=== PATIENT | female | born 1950 | race Two or more races ===

== ENCOUNTER 2020-04-04 06:56 | Outpatient (REF) | payer MEDICAID, SELFPAY ==
[2020-04-04 07:40] LABS: MANUAL DIFF FLAG NO
[2020-04-04 07:47] LABS: Basophils Absolute Auto 0.1 X10*3/uL (0.0-0.2); Basophils Percent Auto 0.7 % (0-2); Eosinophils Absolute Auto 0.3 X10*3/uL (0.0-0.4); Eosinophils Percent Auto 4.7 % (0-4); Hematocrit 40.5 % (37-47); Hemoglobin 13.4 g/dl (12.0-16.0); Imm Gran Abs Auto 0.01 X10*3/uL (0.00-0.03); Imm Gran Pct Auto 0.1 % (0.0-0.4); Lymphocytes Absolute Auto 2.9 X10*3/uL (1.2-4.9); Lymphocytes Percent Auto 42.5 % (20-40); Mean Corpuscular HGB Conc 33.1 g/dl (31.0-35.0); Mean Corpuscular Hemoglobin 30.4 pg (27.0-33.0); Mean Corpuscular Volume 91.8 fL (80-98); Mean Platelet Volume 9.3 fL (9.4-12.3); Monocytes Absolute Auto 0.6 X10*3/uL (0.1-1.2); Monocytes Percent Auto 8.5 % (2-11); Neutrophils Percent Auto 43.5 % (45-73); Platelet Count 325 X10*3/uL (160-400); Red Blood Count 4.41 X10*6/uL (4.20-5.50); Red Cell Distribution Width 11.8 % (11.0-16.0); White Blood Count 6.8 X10*3/uL (4.8-10.8)
[2020-04-04 08:41] LABS: Alanine Aminotransferase 21 U/L (0-31); Albumin Level 4.4 g/dL (3.5-5.0); Alkaline Phosphatase 76 U/L (39-117); Anion Gap 13 (12-20); Aspartate Amino Transferase 19 U/L (5-31); Bilirubin Total 0.4 mg/dL (0.0-1.0); Blood Urea Nitrogen 9 mg/dL (9-16); Calcium 9.9 mg/dL (8.4-10.2); Carbon Dioxide 30 mmol/L (22-29); Chloride 102 mmol/L (96-108); Cholesterol 234 mg/dL; Estimated Glomerular Filt Rate > 60; Glucose Fasting 99 mg/dL (60-99); HDL Cholesterol 74 mg/dL; LDL Cholesterol Calculated 141 mg/dl; Potassium 4.3 mmol/l (3.3-5.1); Sodium 141 mmol/L (135-145); Total Protein 7.6 g/dL (6.5-8.0); Triglycerides 95 mg/dL
== END 2020-04-04 06:57 | disposition home or self-care (01) ==
LOC: HO.LAB 06:56
PROVIDERS: PCP Internal Medicine; Visit Provider Internal Medicine
DX: K21.9 Gastro-esophageal reflux disease without esophagitis (principal); I10 Essential (primary) hypertension
CPT/HCPCS: 36415; 80053; 80061; 85025

== ENCOUNTER 2020-07-05 12:25 | Outpatient (REF) | payer MEDICAID, SELFPAY | END 2020-07-05 12:26 | disposition home or self-care (01) | LOC: HO.LAB 12:25 | PROVIDERS: PCP Internal Medicine; Visit Provider Internal Medicine | DX: Z20.822 Contact with and (suspected) exposure to COVID-19 (principal) | CPT/HCPCS: 36415; C9803; U0003 ==

== ENCOUNTER 2020-07-24 15:45 | Outpatient (REF) | payer MEDICAID, SELFPAY | END 2020-07-24 15:46 | disposition home or self-care (01) | LOC: HO.LAB 15:45 | PROVIDERS: Visit Provider Internal Medicine | DX: Z20.822 Contact with and (suspected) exposure to COVID-19 (principal) | CPT/HCPCS: 36415; C9803; U0003 ==

== ENCOUNTER 2020-08-08 15:06 | Outpatient (REF) | payer MEDICAID, SELFPAY | END 2020-08-08 15:07 | disposition home or self-care (01) | LOC: HO.LAB 15:06 | PROVIDERS: Visit Provider Internal Medicine | DX: Z20.822 Contact with and (suspected) exposure to COVID-19 (principal) | CPT/HCPCS: 36415; C9803; U0003; U0005 ==

== ENCOUNTER 2020-09-05 13:39 | Emergency (ER) | payer MEDICAID, SELFPAY ==
--- NOTE | ~2020-09-05 | XR_ITS ---
EXAMINATION: XR ANKLE, RIGHT CLINICAL INFORMATION: Fall, trauma, pain COMPARISON: None TECHNIQUE: AP, lateral, and mortise views of the right ankle. FINDINGS: There is mild soft tissue swelling overlying lateral malleolus. The malleoli appear intact the ankle mortise is symmetric. There is no visible fracture or dislocation. There is posterior calcaneal spur. Base fifth metatarsal is intact. XR/XR ankle RT min 3V IMPRESSION: Lateral soft tissue swelling. No fracture or dislocation.
--- NOTE | ~2020-09-05 | XR_ITS ---
EXAMINATION: XR KNEE, RIGHT CLINICAL INFORMATION: Fall with knee pain COMPARISON: None TECHNIQUE: Four views of the right knee. FINDINGS: Some minimal degenerative changes are present. Mild narrowing of the medial compartment and some tiny tibial plateau osteophytes. A small osteophyte is noted at the superior surface of the patella posteriorly. A small joint effusion is present. No fracture is seen. An enthesophyte is noted at the insertion of the superior patellar tendon. XR/XR knee RT 4V IMPRESSION: Mild degenerative changes. Small joint effusion. No evidence of traumatic injury
[2020-09-05 13:44] VITALS: BP 165/84; PULSE 91; RESP 18; TEMP 36.6; O2SAT 97; BMI 24.7
--- NOTE | 2020-09-05 17:04 | ED.LOWEXIN ---
HPI - Extremity Injury (Lower) General Chief Complaint: Extremity Injury, Lower Stated Complaint: foot pain Time Seen by Provider: 09/05/20 17:03 Source: patient and science interpreter Mode of arrival: ambulatory Limitations: no limitations History of Present Illness HPI Narrative: 69-year-old female walked into the emergency department after patient tripped on the [employer] rock and fell, patient is complaining of right ankle/right knee pain, able to bear weight and walk with pain. No head injury, no neck pain. Related Data Home Medications Medication Instructions Recorded Confirmed lisinopril 20 mg tablet 20 mg PO DAILY 04/08/20 08/12/20 Allergies Allergy/AdvReac Type Severity Reaction Status Date / Time lansoprazole [Prevacid] Allergy Unknown stomach Verified 08/12/20 14:02 upset pantoprazole Allergy Unknown stomach Verified 08/12/20 14:02 upset lubiprostone [Amitiza] AdvReac Unknown GI upset Verified 08/12/20 14:02 Review of Systems Review of Systems: Yes all other systems are reviewed and are negative [facility] Past Medical History Medical History Essential hypertension Surgical History History of tubal ligation Family History Family History Father Prostate cancer Diabetes Mother No problems noted. Paternal Grandmother Vaginal cancer Paternal Aunt Cervical cancer Son In good health Sister In good health Sister In good health Daughter In good health Daughter In good health Social History Social History Smoking Status: Former smoker Tobacco Type: Cigarette Advance Directives: No Advance Directives Information Provided: Yes Physical Exam Vital Signs: Vital Signs: Last Vital Signs Temp 97.8 F 09/05/20 13:44 Pulse 91 09/05/20 13:44 Resp 18 09/05/20 13:44 BP 165/84 H 09/05/20 13:44 Pulse Ox 97 09/05/20 13:44 Body Mass Index 24.7 High blood pressure (patient with history of hypertension) Const: General: cooperative and healthy appearing HENMT: Head: Yes normal to inspection Chest: Chest palpation & inspection: normal inspection of the chest and normal palpation of entire chest wall Resp: Effort & Inspection: normal respiratory effort Cardio: Jugular venous distension: no JVD GI: Inspection: Yes normal to inspection Extrem: Other: Right ankle: Swelling over lateral malleolus, mild tenderness over the lateral malleolus, no deformity, no step-off, normal neurovascular exam. Right knee: Tenderness over the entire joint, no deformity, no step-off, mild joint effusion, full passive range of motion with pain and tenderness. Course Course Course Narrative: Assessment and plan. 69-year-old female status post mechanical fall with right ankle/right knee contusion and swelling. Recommended ice/elevation/NSAIDs. MDM - Extremity Injury (Lower) Imaging Data Right ankle x-ray: Radiologist's impression: No acute fracture, swelling over lateral malleolus. Right knee x-ray: Radiologist's impression: No acute fracture or dislocation. Discharge Plan Discharge Clinical Impression: Essential hypertension, Ankle sprain and strain, Contusion of knee Patient Disposition: Home, Self-Care Instructions: Ankle Sprain (ED) Additional Instructions: Take ibuprofen 200 mg tablet every 6 hours if needed for pain do not take it on empty stomach. Apply ice to the right knee/right ankle. Elevate your right lower extremities at night time only sleeping. Prescriptions: No Action lisinopril 20 mg tablet 20 mg PO DAILY RF: 0 Referrals: Physician,Unknown [Primary Care Provider] - 2 days
[2020-09-05] MEDS: Ibuprofen 800 MG TABLET PO (17:38)
== END 2020-09-05 19:09 | disposition home or self-care (01) ==
PROVIDERS: Emergency Provider Emergency Medicine
DX: S93.401A Sprain of unspecified ligament of right ankle, initial encounter (principal); S96.911A Strain of unspecified muscle and tendon at ankle and foot level, right foot, initial encounter; S80.01XA Contusion of right knee, initial encounter; W01.0XXA Fall on same level from slipping, tripping and stumbling without subsequent striking against object, initial encounter; I10 Essential (primary) hypertension; Y93.01 Activity, walking, marching and hiking; Y92.480 Sidewalk as the place of occurrence of the external cause; Y99.9 Unspecified external cause status; Z87.891 Personal history of nicotine dependence
CPT/HCPCS: 73564; 73610; 99283; 99284

== ENCOUNTER 2020-10-26 22:59 | Emergency (ER) | payer MEDICAID, SELFPAY ==
[2020-10-27 00:08] VITALS: BP 169/93; PULSE 77; RESP 16; O2SAT 99; BMI 26.9
[2020-10-27 00:17] VITALS: BP 176/90
[2020-10-27 00:30] LABS: MANUAL DIFF FLAG NO
[2020-10-27 00:31] VITALS: BP 176/90; PULSE 78
[2020-10-27] MEDS: amLODIPine Besylate 5 MG TABLET PO (00:31)
[2020-10-27] MEDS: Acetaminophen 325 MG TABLET 650 MG PO (00:31)
--- NOTE | 2020-10-27 00:31 | ED.GENADULT ---
HPI - General Adult General Chief complaint: General Medical Stated complaint: high bp Time Seen by Provider: 10/27/20 00:06 Source: patient Mode of arrival: ambulatory Limitations: language barrier History of Present Illness HPI narrative: 70-year-old female with past medical history of hypertension presents with elevated blood pressure. States that she took blood pressure earlier today was 190/90. She was seen by her primary care physician a few days ago, and primary care increased her lisinopril from 20 mg to 30 mg. Patient has been compliant with 30 mg dosage of lisinopril. She states that she monitors her blood pressure several times a day and has concerns that the 30 mg of lisinopril did not work for her. She does describe a slight headache that is occipital and consistent with prior headaches, and does not have any other concerns. She denies chest pain or pressure, palpitations, shortness breath, shortness breath on exertion, dizziness, lightheadedness, abdominal pain, abdominal distention, dysuria, hematuria, nausea, vomiting, diarrhea, loss of balance, edema, symptoms indicating cauda equina, changes in vision, or any other concerning symptoms. Onset (ago): unknown Location: head Radiation: non-radiation Severity: moderate Severity scale (1-10): 4 Quality: aching Pain Consistency: constant Relieving factors: none Associated symptoms: denies other symptoms Treatments prior to arrival: none Related Data Previous Rx's Medication Instructions Recorded lisinopril 30 mg tablet 30 mg PO DAILY 90 Days #90 tab 10/25/20 amlodipine 5 mg PO DAILY #30 tab 10/27/20 Allergies Allergy/AdvReac Type Severity Reaction Status Date / Time lansoprazole [Prevacid] Allergy Unknown stomach Verified 10/02/20 16:11 upset pantoprazole Allergy Unknown stomach Verified 10/02/20 16:11 upset lubiprostone [Amitiza] AdvReac Unknown GI upset Verified 10/02/20 16:11 Review of Systems Review of Systems: Constitutional: Positive headache, No Weight loss, No Fever, No Chills, No Night Sweats, No Fatigue, No Malaise ENT/Mouth: No Hearing loss, No Ear Pain, No Nasal Congestion, No Sinus Pain, No Hoarseness, No sore throat, No Rhinorrhea, No Swallowing Difficulty Eyes: No Eye Pain, No Swelling, No Redness, No Foreign Body, No Discharge, No Vision Changes Cardiovascular: Positive elevated blood pressure, No Chest Pain, No SOB, No Dyspnea on Exertion, No Orthopnea, No Edema, No Palpitations Respiratory: No Cough, No Sputum, No Wheezing, No Smoke Exposure, No Dyspnea Gastrointestinal: No Nausea, No Vomiting, No Diarrhea, No Constipation, No abdominal Pain, No Hematochezia, No Melena Genitourinary: no irregular bleeding, No Dysuria, No Urinary Frequency, No Hematuria, No Urinary Incontinence, No Urgency, No Flank Pain, No Urinary Flow Changes, No Hesitancy Musculoskeletal: No joint pain, No Myalgias, No Joint Swelling Skin: No Skin Lesions, No rash Neuro: Positive headache, No Weakness, No Numbness, No Paresthesias, No Loss of Consciousness, No Dizziness Psych: No Anxiety/Panic, No Depression, No SI/HI/AH/VH, No Social Issues Heme/Lymph: No Bruising, No Bleeding,No Lymphadenopathy Endocrine: No Polyuria, No Polydipsia, No Temperature Intolerance Yes all other systems are reviewed and are negative [facility] Past Medical History Attestation statement: The following information was validated with the patient. Source: old records reviewed Medical History Essential hypertension Right ankle swelling Surgical History History of tubal ligation Family History Family History Father Prostate cancer Diabetes Mother No problems noted. Paternal Grandmother Vaginal cancer Paternal Aunt Cervical cancer Son In good health Sister In good health Sister In good health Daughter In good health Daughter In good health Social History Social History Alcohol intake: never Smoking Status: Never smoker Tobacco Type: Cigarette Smoked in Last 30 Days: No Use of substances other than those prescribed or required for medical reasons: No Advance Directives: No Advance Directives Information Provided: No Physical Exam Vital Signs: Vital Signs: Last Vital Signs Pulse 78 10/27/20 00:31 Resp 16 10/27/20 00:08 BP 176/90 H 10/27/20 00:31 Pulse Ox 99 10/27/20 00:08 Body Mass Index 26.9 Appearance: Alert. Oriented X3. No acute distress. Head: Normal external exam. Normocephalic. Atraumatic. No Micthell signs noted. No raccoon eyes noted Eyes: PERRLA. EOMI. Conjunctiva and sclera normal. Eyelids normal. ENT: TM's Normal. Pharynx normal. Uvula midline. Moist mucous membranes. No trismus noted. No drooling noted. No muffled voice noted. Neck: Normal inspection. Neck supple. No adenopathy. Thyroid Normal. No meningeal signs. No neck mass noted. CVS: Normal heart rate and rhythm. Heart sound normal. No murmurs noted. Pulses equal to all extremities. Respiratory: No respiratory distress. Painless inspiration. Breath sounds normal. No wheezes/rales/rhonchi noted. Chest nontender. No accessory muscle usage noted or decreased air movement noted. Abdomen: Soft and nontender. Bowel sounds normal in all 4 quadrants. No distention noted. No organomegaly noted. No visible injury noted. Back: No CVA tenderness. Full range of motion noted. Skin: Skin warm and dry. Normal skin color. Normal skin turgor. No rashes/lesions/lacerations noted. Extremities: No lower extremity edema. Extremities exhibit normal range of motion. Extremities nontender. Neuro: cranial nerves 2-12 intact, no focal neural deficits, strength 5/5 to all extremities, No motor deficit. No sensory deficit. Course Course Course Narrative: 70-year-old female presents with elevated blood pressure and headache. States this headache is consistent with her prior headaches that she has had. Was seen by her primary care physician on 10/02/2020, and presented to the office on 10/25/2020 for elevated blood pressure. On 10/25/2020 she did not see a physician, the office nurse called her primary, and then primary increased lisinopril from 20 mg to 10 mg. Patient does not have any neurological deficits, NIH stroke scale is 0. At this time I do not feel patient requires CT scan or imaging, will order CBC, Chem 7, and give amlodipine 5 mg. Discussion with patient utilizing fine wire drawer, patient feels that her blood pressure is too high, discussed adding amlodipine to her regimen however she must follow-up with primary care physician for follow-up. Patient agrees to this plan of care. Approximate 1 hour after amlodipine administration blood pressure 150/85, patient no longer has a headache. No focal neural deficits. Detailed description of blood pressure monitoring and that she needs to follow up with primary care physician. fine wire drawer utilized all correspondence. Google translate utilized for discharge instructions. Patient verbalized understanding of discharge instructions, amlodipine use, blood pressure monitoring, need to follow-up with primary care, and agrees to plan of care discharge home. Medical Decision Making Differential Diagnosis Differential Diagnosis: Essential hypertension Medical Records Medical records reviewed: Yes I reviewed the patient's medical records. Lab Data Lab results reviewed: Yes I reviewed the patient's lab results. Result diagrams: 10/27/20 00:27 10/27/20 00:27 Labs: Lab Results 10/27/20 10/27/20 Range/Units 00:27 00:27 WBC 8.0 (4.8-10.8) X10*3/uL RBC 4.25 (4.20-5.50) X10*6/uL Hgb 13.0 (12.0-16.0) g/dl Hct 39.0 (37-47) % MCV 91.8 (80-98) fL MCH 30.6 (27.0-33.0) pg MCHC 33.3 (31.0-35.0) g/dl RDW 11.9 (11.0-16.0) % Plt Count 311 (160-400) X10*3/uL MPV 9.3 L (9.4-12.3) fL Immature Gran % (Auto) 0.1 (0.0-0.4) % Neut % (Auto) 57.0 (45-73) % Lymph % (Auto) 29.4 (20-40) % [place] % (Auto) 9.0 (2-11) % Eos % (Auto) 4.1 H (0-4) % Baso % (Auto) 0.4 (0-2) % Lymph # (Auto) 2.3 (1.2-4.9) X10*3/uL [place] # (Auto) 0.7 (0.1-1.2) X10*3/uL Eos # (Auto) 0.3 (0.0-0.4) X10*3/uL Baso # (Auto) 0.0 (0.0-0.2) X10*3/uL Abs Immat Gran (auto) 0.01 (0.00-0.03) X10*3/uL Absolute Neuts (auto) 4.5 (2.0-8.3) X10*3/uL Absolute Nucleated RBC 0.000 (0.0-0.012) X10*3/uL Nucleated RBC % (auto) 0.0 (0.0-0.2) /100WBC Sodium 142 (135-145) mmol/L Potassium 3.8 (3.3-5.1) mmol/L Chloride 104 (96-108) mmol/L Carbon Dioxide 28 (22-29) mmol/L Anion Gap 14 (12-20) BUN 17 H D (9-16) mg/dL Creatinine 0.77 (0.5-1.4) mg/dL Estim Creat Clear Calc 64.2 Estimated GFR > 60 Random Glucose 100 (60-115) mg/dL Calcium 9.7 (8.4-10.2) mg/dL Discharge Plan Discharge Clinical Impression: Essential hypertension Patient Disposition: Home, Self-Care Instructions: Amlodipine (By mouth), Hypertension (ED) Additional Instructions: Te evaluaron para elevar la presi?n arterial. Por favor, contin?e tomando lala lisinopril seg?n las instrucciones de lala m?dico de atenci?n primaria. Agregamos amlodipino 5 mg. Usted debe hacer un seguimiento con el m?dico de atenci?n primaria dentro de la pr?xima semana para evaluarlo para la presi?n arterial elevada y nuevos medicamentos para la presi?n arterial. Por favor, tome lala presi?n arterial cristopher vez antes de nan medicamentos y luego cristopher vez 3 horas despu?s de nan medicamentos. Anota los n?meros y ll?valos a lala m?dico de atenci?n primaria para que pueda evaluar si los medicamentos para la presi?n arterial est?n funcionando eficazmente [place] por elegir link departamento de emergencias para lala evaluaci?n. Por favor, fozia un seguimiento con el m?dico de atenci?n primaria seg?n sea necesario. Regrese al servicio de emergencias para cualquier s?ntoma nuevo, preocupante o que empeore. You were evaluated for elevated blood pressure. Please continue to take your lisinopril as directed by her primary care physician. We added amlodipine 5 mg. You must follow-up with primary care physician within the next week to evaluate you for elevated blood pressure and new blood pressure medication. Please take your blood pressure once before you take medications and then once 3 hours after you take medications. Write the numbers down and bring them to her primary care physician so she can evaluate if the blood pressure medications are working effectively. Thank you for choosing this emergency department for evaluation. Please follow-up with primary care physician as needed. Return to the emergency department for any new, concerning, or worsening symptoms. Prescriptions: New amlodipine 5 mg tablet 5 mg PO DAILY Qty: 30 RF: 0 No Action lisinopril 30 mg tablet 30 mg PO DAILY 90 Days Qty: 90 RF: 1
[2020-10-27 00:32] LABS: Basophils Percent Auto 0.4 % (0-2); Eosinophils Absolute Auto 0.3 X10*3/uL (0.0-0.4); Eosinophils Percent Auto 4.1 % (0-4); Imm Gran Abs Auto 0.01 X10*3/uL (0.00-0.03); Imm Gran Pct Auto 0.1 % (0.0-0.4); Lymphocytes Absolute Auto 2.3 X10*3/uL (1.2-4.9); Lymphocytes Percent Auto 29.4 % (20-40); Mean Corpuscular HGB Conc 33.3 g/dl (31.0-35.0); Mean Corpuscular Hemoglobin 30.6 pg (27.0-33.0); Mean Corpuscular Volume 91.8 fL (80-98); Mean Platelet Volume 9.3 fL (9.4-12.3); Monocytes Absolute Auto 0.7 X10*3/uL (0.1-1.2); Neutrophils Absolute Auto 4.5 X10*3/uL (2.0-8.3); Platelet Count 311 X10*3/uL (160-400); Red Blood Count 4.25 X10*6/uL (4.20-5.50); Red Cell Distribution Width 11.9 % (11.0-16.0)
[2020-10-27 00:55] LABS: Anion Gap 14 (12-20); Blood Urea Nitrogen 17 mg/dL (9-16); Calcium 9.7 mg/dL (8.4-10.2); Carbon Dioxide 28 mmol/L (22-29); Chloride 104 mmol/L (96-108); Creatinine Clr Calc Pharmacy 64.2; Estimated Glomerular Filt Rate > 60; Glucose Random 100 mg/dL (60-115); Potassium 3.8 mmol/L (3.3-5.1); Sodium 142 mmol/L (135-145)
[2020-10-27 01:12] VITALS: BP 150/85; PULSE 70; RESP 16; O2SAT 98
== END 2020-10-27 02:05 | disposition home or self-care (01) ==
PROVIDERS: Nurse Practitioner Family; Emergency Provider Emergency Medicine; PCP Internal Medicine
DX: I10 Essential (primary) hypertension (principal); R51.9 Headache, unspecified; F17.210 Nicotine dependence, cigarettes, uncomplicated; Z79.899 Other long term (current) drug therapy
CPT/HCPCS: 36415; 80048; 85025; 99283; 99284

== ENCOUNTER 2020-11-13 09:29 | Outpatient (REF) | payer MEDICAID, SELFPAY ==
--- NOTE | ~2020-11-13 | MR_ITS ---
EXAMINATION: MR ANKLE WITHOUT AND WITH CONTRAST, RIGHT CLINICAL INFORMATION: Fall injury. Pain. COMPARISON: Right ankle radiographs dated September 05, 2020. TECHNIQUE: MRI of the ankle was performed before and after the intravenous administration of 7 mL gadolinium on a high-field scanner. FINDINGS: Bone/Cartilage: Vertically oriented dark signal in the posterior malleolus is appreciated secondary to a minimally posteriorly displaced, complete vertically oriented intra-articular fracture through the posterior malleolus. There is mild posterior displacement of the distal fracture fragment at the fracture site. Surrounding bone marrow edema at the fracture site is appreciated. The joint spaces are preserved. No erosion or periosteal edema. No osteochondral lesion. Tendons: The anterior extensor tendons are intact. The posterior tibialis, flexor digitorum longus and flexor hallucis longus tendons are intact. The peroneus longus and brevis tendons are intact. The Achilles tendon is normal. Ligaments: The anterior and posterior tibiofibular and talofibular ligaments are intact. The calcaneofibular ligament is intact. The deltoid and spring ligament complex are intact. The Lisfranc ligament complex is intact. Miscellaneous: Plantar fascia is intact. Tarsal tunnel is normal in appearance. Edematous changes in the sinus Tarsi are noted with replacement of sinus Tarsi fat with edema. Mild edema in Kager's fat pad. Moderate ankle joint effusion and small posterior subtalar joint effusion. No muscle atrophy or fatty infiltration. MR/MR ankle RT wo/w con IMPRESSION: Right ankle: Nondisplaced minimally posteriorly displaced complete, vertically oriented intra-articular fracture of the posterior malleolus with surrounding bone marrow edema. Moderate ankle joint effusion and mild ankle joint synovitis, presumed posttraumatic. Mild posterior subtalar joint effusion. Intact ankle ligaments and tendons. Edematous changes in the sinus Tarsi presumed posttraumatic. 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
== END 2020-11-13 09:30 | disposition home or self-care (01) ==
LOC: HO.MRI 09:29
PROVIDERS: Visit Provider Internal Medicine
DX: M25.471 Effusion, right ankle (principal)
CPT/HCPCS: 73723; A9585

== ENCOUNTER 2020-12-02 07:47 | Outpatient (REF) | payer MEDICAID, SELFPAY ==
[2020-12-02 09:13] LABS: Alanine Aminotransferase 19 U/L (0-31); Albumin Level 4.1 g/dL (3.5-5.0); Alkaline Phosphatase 79 U/L (39-117); Anion Gap 11 (12-20); Aspartate Amino Transferase 18 U/L (5-31); Bilirubin Total 0.5 mg/dL (0.0-1.0); Blood Urea Nitrogen 21 mg/dL (9-16); Calcium 9.8 mg/dL (8.4-10.2); Carbon Dioxide 28 mmol/L (22-29); Chloride 106 mmol/L (96-108); Cholesterol 244 mg/dL; Estimated Glomerular Filt Rate 60; Glucose Fasting 102 mg/dL (60-99); HDL Cholesterol 70 mg/dL; LDL Cholesterol Calculated 158 mg/dl; Potassium 4.2 mmol/L (3.3-5.1); Sodium 141 mmol/L (135-145); Total Protein 7.1 g/dL (6.5-8.0); Triglycerides 80 mg/dL
== END 2020-12-02 07:48 | disposition home or self-care (01) ==
LOC: HO.LAB 07:47
PROVIDERS: PCP Internal Medicine; Visit Provider Internal Medicine
DX: E78.5 Hyperlipidemia, unspecified (principal); I10 Essential (primary) hypertension; M25.471 Effusion, right ankle
CPT/HCPCS: 36415; 80053; 80061

== ENCOUNTER 2020-12-25 11:03 | Outpatient (REF) | payer MEDICAID, SELFPAY ==
--- NOTE | ~2020-12-25 | MM_ITS ---
EXAMINATION: MM SCREENING DIGITAL BREAST TOMOSYNTHESIS, BILATERAL CLINICAL INFORMATION: Screening. Asymptomatic. The lifetime risk of breast cancer based on the Tyrer-Cuzick Model is 3.4%. COMPARISON: Mammography: May 17, 2019 and studies dating back to April 07, 2016 TECHNIQUE: Digital breast tomosynthesis is performed in both the craniocaudal and mediolateral oblique views along with computer-aided detection (CAD). Synthesized 2D images are generated from the tomosynthesis. FINDINGS: There are scattered areas of fibroglandular density (ACR BI-RADS breast composition Category b). There are no significant masses, abnormal calcifications, or other abnormalities. MM/MM tomosynthesis screening BI IMPRESSION: There are no significant changes from prior study. ASSESSMENT: BI-RADS 1: Negative RECOMMENDATION: Routine annual mammography screening. This patient's information was entered into a reminder system with a target due date for their next mammogram.
== END 2020-12-25 11:04 | disposition home or self-care (01) ==
LOC: HO.MAMMO 11:03
PROVIDERS: Visit Provider Internal Medicine
DX: Z12.31 Encounter for screening mammogram for malignant neoplasm of breast (principal)
CPT/HCPCS: 77063; 77067

== ENCOUNTER 2020-12-27 10:04 | Outpatient (REF) | payer MEDICAID, SELFPAY ==
--- NOTE | ~2020-12-27 | XR_ITS ---
EXAMINATION: XR ANKLE, RIGHT CLINICAL INFORMATION: Pain COMPARISON: Previous x-ray August 2010 and MRI of the ankle October 2010 TECHNIQUE: AP, lateral, and mortise views of the right ankle. FINDINGS: There is new cortical thickening of the posterior malleolus likely related to healing fracture. A discrete fracture line is not appreciated. The ankle mortise is normal. There is a calcaneal spur at the Achilles tendon insertion. Soft tissues are otherwise normal. XR/XR ankle RT min 3V IMPRESSION: New cortical thickening of the posterior malleolus likely representing a healing fracture.
== END 2020-12-27 10:05 | disposition home or self-care (01) ==
LOC: HO.XRAY 10:04
PROVIDERS: PCP Internal Medicine; Visit Provider Physician Assistant
DX: S82.891D Other fracture of right lower leg, subsequent encounter for closed fracture with routine healing (principal); X58.XXXD Exposure to other specified factors, subsequent encounter
CPT/HCPCS: 73610; 99202

== ENCOUNTER 2021-01-15 06:56 | Outpatient (REF) | payer MEDICAID, SELFPAY ==
[2021-01-15 07:59] LABS: Alanine Aminotransferase 19 U/L (0-31); Albumin Level 4.2 g/dL (3.5-5.0); Alkaline Phosphatase 75 U/L (39-117); Anion Gap 12 (12-20); Aspartate Amino Transferase 20 U/L (5-31); Bilirubin Total 0.4 mg/dL (0.0-1.0); Blood Urea Nitrogen 17 mg/dL (9-16); Calcium 9.9 mg/dL (8.4-10.2); Carbon Dioxide 27 mmol/L (22-29); Chloride 106 mmol/L (96-108); Cholesterol 186 mg/dL; Estimated Glomerular Filt Rate > 60; Glucose Fasting 97 mg/dL (60-99); HDL Cholesterol 70 mg/dL; LDL Cholesterol Calculated 99 mg/dl; Potassium 4.4 mmol/L (3.3-5.1); Sodium 141 mmol/L (135-145); Total Protein 7.6 g/dL (6.5-8.0); Triglycerides 89 mg/dL
== END 2021-01-15 06:57 | disposition home or self-care (01) ==
LOC: HO.LAB 06:56
PROVIDERS: PCP Internal Medicine; Visit Provider Internal Medicine
DX: E78.5 Hyperlipidemia, unspecified (principal)
CPT/HCPCS: 36415; 80053; 80061

== ENCOUNTER 2021-02-20 10:00 | Outpatient (RCR) | payer MEDICAID, SELFPAY ==
--- NOTE | 2021-01-16 12:01 | MHC.PT.EP ---
[facility] [place] Office [place] Office [place] Office [address] [phone] F: [phone] F: [phone] F: [phone] F: [phone] Physical Therapy Plan of Care Date of Evaluation: Date of Surgery: N/A Diagnosis: S82.891D: other fracture of right lower leg, subsequent encounter for fracture with routine healing Assessment: pt presents post-fall w/ nondisplaced fx of R posterior malleolus causing range of motion restrictions in the sagittal plane, B LE edema, and weakness of muscles surrounding the talocrural join limiting her ability to perform functional mobility such as household and community ambulation, stairs to access her home, and 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 pt was reporting numbness of the entire R LE; however, sensory testing was negative. pt is a good candidate for skilled PT due to age, potential remediation of impairments, typical disease/condition progression and prognosis, comorbidities, and motivation. pt would benefit from tailored strengthening and stretching exercise program, functional training, gait training, postural re-training, neuromuscular re-education, modalities as needed for pain, and equipment safety demonstration. Frequency and Duration: The patient will be seen 2x/wk for 4 wks Short Term Goals: pt will be I w/ HEP to promote self-management of condition. pt will improve R ankle DF by 10 degrees to promote ability to descend stairs without having to turn her body sideways using LRAD. 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 pt will improve R ankle strength PF by 1 MMT grade to improve push-off at terminal stance during gait to improve gait speed and reduce fall risk. Treatment Plan: Modalities to reduce pain, spasms and effusion. Manual therapy to restore motion and function. Therapeutic exercise to improve strength and flexibility. Neuromuscular re-education for posture and balance. Therapeutic activities to return to functional activities of daily living. Electronically signed by: Melia Gutierrez PT, DPT Please sign and return to therapist. Thank you for your referral.
--- NOTE | 2021-02-20 13:48 | MHC.PT.DC ---
[facility] [place] Office [place] Office [place] Office [address] [phone] F: [phone] F: [phone] F: [phone] F: [phone] Physical Therapy Discharge Report Diagnosis: S82.891D: other fracture of right lower leg, subsequent encounter for fracture with routine healing Date of Surgery: DOI 09/05/20 Date of Evaluation: 01/16/21 Date of Discharge: 02/20/21 Treatments to Date: 9 Cancellations to Date: 0 No Shows to Date: 0 Discharge Status: Improved Function Independent with HEP Discharge Summary: The patient has been consistently reporting little to no pain. She reports no limitations at home or while ambulating in the community. She is able to navigate the stairs into and out of her home. She has been compliant with wearing the ASO brace and more supportive footwear through consistent education. She is independent with her home exercise program. The patient is discharged from this physical therapy plan of care. Electronically signed by: Melia Gutierrez PT, DPT Please sign and return to therapist. Thank you for your referral.
== END 2021-02-20 13:48 | disposition home or self-care (01) ==
LOC: HO.PT 10:00
PROVIDERS: PCP Internal Medicine; Visit Provider Physician Assistant
DX: S82.891D Other fracture of right lower leg, subsequent encounter for closed fracture with routine healing (principal)
CPT/HCPCS: 97110; 97112; 97150; 97161; 97530

== ENCOUNTER 2021-04-29 14:17 | Outpatient (REF) | payer MEDICAID, SELFPAY | END 2021-04-29 14:18 | disposition home or self-care (01) | LOC: HO.LAB 14:17 | PROVIDERS: Visit Provider Internal Medicine | DX: Z20.822 Contact with and (suspected) exposure to COVID-19 (principal) | CPT/HCPCS: C9803; U0003; U0005 ==

== ENCOUNTER 2021-07-09 10:47 | Outpatient (REF) | payer MEDICAID, SELFPAY | END 2021-07-09 10:48 | disposition home or self-care (01) | LOC: HO.LAB 10:47 | PROVIDERS: Visit Provider Internal Medicine | DX: Z13.89 Encounter for screening for other disorder (principal) | CPT/HCPCS: C9803 ==

== ENCOUNTER 2021-07-22 08:50 | Outpatient (REF) | payer MEDICAID, SELFPAY ==
--- NOTE | ~2021-07-22 | US_ITS ---
EXAMINATION: US RETROPERITONEAL LIMITED (RENAL ONLY) CLINICAL INFORMATION: Essential primary hypertension. COMPARISON: Previous CT of the abdomen and pelvis July 2019, MR of the abdomen June 2018 and renal ultrasound July 2016. TECHNIQUE: Chaney scale and color imaging of the kidneys. Doppler color and chaney scale evaluation of the renal arteries including waveform spectral analysis was performed. FINDINGS: RIGHT KIDNEY: 10.6 x 5.5 x 5.0 cm (SAG x AP x TRV). The kidney is normal in size, contour, and echogenicity. Renal cortical thickness is normal. There is a 3.7 x 3.6 x 3.1 cm echogenic lesion exophytic to the posterior upper pole of the right kidney. This probably represents an angiomyolipoma. This measured 2.9 x 1.2 x 2.5 cm on most recent CT of July 2019 and is slightly increased in size. No calculi. No hydronephrosis. LEFT KIDNEY: 11.7 x 5.4 x 6.7 cm (SAG x AP x TRV). The kidney is normal in size, contour, and echogenicity. Renal cortical thickness is normal. No calculi or focal parenchymal lesions. No hydronephrosis. The visualized mid abdominal aorta is normal in caliber and demonstrates normal peak systolic velocity of 95 cm/s. The right renal artery appears patent. The right renal artery peak systolic velocities are normal and measure 141, 130 and 82 cm/s proximally, in the midportion and distally. Right renal artery to aorta ratio is normal measuring 1.5 cm. Interlobar arteries in the right kidney are normal measuring 0.7 to 0.8. The right renal vein is patent. The left renal artery appears patent. The left renal artery peak systolic velocities are normal measuring 115, 130, and 99 cm/s proximally, in the midportion and distally. Left renal artery to aorta ratio is normal. Resistive indices of the interlobar arteries in the left kidney are normal measuring 0.7 to 0.8. The left renal vein is patent. US/US renal doppler IMPRESSION: Interval increase in size in the now 3.7 x 3.6 x 3.1 cm hyperechoic lesion exophytic to the upper pole of the right kidney. This most likely represents an angiomyolipoma. Normal renal Doppler exam. No evidence of renal artery stenosis.
== END 2021-07-22 08:51 | disposition home or self-care (01) ==
LOC: HO.US 08:50
PROVIDERS: PCP Internal Medicine; Visit Provider Internal Medicine
DX: I10 Essential (primary) hypertension (principal)
CPT/HCPCS: 76775; 93975

== ENCOUNTER 2021-12-31 11:32 | Outpatient (REF) | payer OTHER, SELFPAY ==
--- NOTE | ~2021-12-31 | MM_ITS ---
EXAMINATION: MM SCREENING DIGITAL BREAST TOMOSYNTHESIS, BILATERAL CLINICAL INFORMATION: Screening. Asymptomatic. The lifetime risk of breast cancer based on the Tyrer-Cuzick Model is 3%. COMPARISON: Mammography: 12/25/2020, 05/17/2019, 05/04/2018 TECHNIQUE: Digital breast tomosynthesis is performed in both the craniocaudal and mediolateral oblique views along with computer-aided detection (CAD). Synthesized 2D images are generated from the tomosynthesis. FINDINGS: There are scattered areas of fibroglandular density (ACR BI-RADS breast composition Category b). There are no significant masses, abnormal calcifications, or other abnormalities. Parenchymal pattern is similar to prior exams. There are incidental intramammary nodes again noted bilateral outer quadrant. The axilla and skin contours are unremarkable. MM/MM tomosynthesis screening BI IMPRESSION: No mammographic evidence of malignancy. ASSESSMENT: BI-RADS 2: Benign RECOMMENDATION: Routine annual mammography screening. This patient's information was entered into a reminder system with a target due date for their next mammogram.
== END 2021-12-31 11:33 | disposition home or self-care (01) ==
LOC: HO.MAMMO 11:32
PROVIDERS: Visit Provider Internal Medicine
DX: Z12.31 Encounter for screening mammogram for malignant neoplasm of breast (principal)
CPT/HCPCS: 77063; 77067

== ENCOUNTER 2022-01-22 08:16 | Outpatient (REF) | payer OTHER, MEDICAID, SELFPAY ==
[2022-01-22 09:24] LABS: Alanine Aminotransferase 30 U/L (0-31); Albumin Level 4.1 g/dL (3.5-5.0); Alkaline Phosphatase 82 U/L (39-117); Anion Gap 12 (12-20); Aspartate Amino Transferase 22 U/L (5-31); Bilirubin Total 0.2 mg/dL (0.0-1.0); Blood Urea Nitrogen 11 mg/dL (9-16); Calcium 9.7 mg/dL (8.4-10.2); Carbon Dioxide 28 mmol/L (22-29); Chloride 103 mmol/L (96-108); Cholesterol 231 mg/dL; Estimated Glomerular Filt Rate > 60; Glucose Fasting 97 mg/dL (60-99); HDL Cholesterol 58 mg/dL; LDL Cholesterol Calculated 150 mg/dl; Potassium 3.8 mmol/L (3.3-5.1); Sodium 139 mmol/L (135-145); Total Protein 7.4 g/dL (6.5-8.0); Triglycerides 115 mg/dL
== END 2022-01-22 08:17 | disposition home or self-care (01) ==
LOC: HO.LAB 08:16
PROVIDERS: PCP Internal Medicine; Visit Provider Internal Medicine
DX: I10 Essential (primary) hypertension (principal); E78.5 Hyperlipidemia, unspecified
CPT/HCPCS: 36415; 80053; 80061

== ENCOUNTER 2022-02-10 07:46 | Outpatient (REF) | payer OTHER, SELFPAY ==
--- NOTE | ~2022-02-10 | XR_ITS ---
EXAMINATION: XR SHOULDER, RIGHT CLINICAL INFORMATION: Right shoulder pain. COMPARISON: None TECHNIQUE: 3 views of the right shoulder. FINDINGS: There is loss of right AC joint space with periarticular spurring. The glenohumeral joint space is normal. No loose bodies, acute fracture or bony erosive changes. No soft tissue calcification. XR/XR shoulder RT min 2V IMPRESSION: Degenerative arthritic changes right AC joint.
== END 2022-02-10 07:47 | disposition home or self-care (01) ==
LOC: HO.HOSX 07:46
PROVIDERS: Visit Provider Physician Assistant
DX: M75.101 Unspecified rotator cuff tear or rupture of right shoulder, not specified as traumatic (principal); M75.102 Unspecified rotator cuff tear or rupture of left shoulder, not specified as traumatic
CPT/HCPCS: 73030; 99202

== ENCOUNTER 2022-09-25 06:46 | Outpatient (REF) | payer OTHER, SELFPAY ==
--- NOTE | ~2022-09-25 | XR_ITS ---
EXAMINATION: XR CHEST CLINICAL INFORMATION: Positive TB test. COMPARISON: None available. TECHNIQUE: 2 views of the chest were obtained. FINDINGS: The cardiac and mediastinal contours are normal. There is biapical pleural and parenchymal scarring, right greater than left. There is an asymmetric density measuring approximately 1 cm at the right lung apex overlying the right posterior 4th rib. There are increased linear markings in the right upper lobe, probably representing scarring. There is question of a surgical staple line in the right upper lobe between the right posterior 5th and 6th ribs. There is a triangular-shaped density in the right upper chest overlying the scapula and posterior 6th rib. The lungs are otherwise clear. There is no pleural effusion or pneumothorax. There are degenerative changes of the spine. XR/XR chest 2V IMPRESSION: Biapical pleural and parenchymal scarring, right greater than left. Abnormal right upper lobe findings. Comparison with old outside chest x-rays if available is recommended. Otherwise followup chest CT should be considered.
== END 2022-09-25 06:47 | disposition home or self-care (01) ==
LOC: HO.XRAY 06:46
PROVIDERS: PCP Internal Medicine; Visit Provider Internal Medicine
DX: R76.11 Nonspecific reaction to tuberculin skin test without active tuberculosis (principal)
CPT/HCPCS: 71046

== ENCOUNTER 2023-01-06 07:05 | Outpatient (REF) | payer OTHER, SELFPAY ==
--- NOTE | ~2023-01-06 | XR_ITS ---
EXAMINATION: XR CHEST CLINICAL INFORMATION: Positive PPD. COMPARISON: Chest radiograph 09/25/2022. TECHNIQUE: 2 views of the chest were obtained. FINDINGS: Redemonstration of right greater than left biapical pleural-parenchymal thickening and scarring. Again noted approximately 1.2 cm nodularity in the right upper lobe with irregular margins, not significantly changed compared to 09/25/2022. Otherwise, clear lungs. No pleural effusions or pneumothorax. No acute osseous findings. The visualized upper abdomen is within normal limits. XR/XR chest 2V IMPRESSION: 1. No significant change since 09/25/2022. 2. Again noted approximately 1.2 cm nodularity in the right upper lobe with irregular margins, malignancy is not excluded. Further evaluation with chest CT is recommended. 3. Right greater than left biapical pleural parenchymal thickening and scarring. The report will be called to the ordering clinician by a [facility] Cutter.
== END 2023-01-06 07:06 | disposition home or self-care (01) ==
LOC: HO.XRAY 07:05
PROVIDERS: PCP Internal Medicine; Visit Provider Internal Medicine Pulmonary Disease
DX: R76.11 Nonspecific reaction to tuberculin skin test without active tuberculosis (principal)
CPT/HCPCS: 71046

== ENCOUNTER 2023-02-03 12:15 | Outpatient (AMB) | payer OTHER, SELFPAY ==
--- NOTE | 2023-02-03 12:53 | A.OFFPC_ITS ---
Vital Signs 02/03/23 12:54 Height 5 ft 3 in Weight 148 lb 2 oz BMI 26.2 BP 120/60 Blood Pressure Location Lt brachial Position Sitting Pulse 76 Pulse Source Pulse Oximeter Pulse Oximetry (%) 98 Oxygen Delivery Method Room Air Intake Visit Reasons: PE Intake Note: Patient is here today for a physical. Zipper Setter Chainstitch Required: Yes Zipper Setter Chainstitch Language: Divehi Information Interpreted: non-clinical & clinical Needle Punch Machine Operator: Not Required per policy Accompanied by: Self / Same As Patient Allergies lansoprazole [Prevacid] Allergy (Intermediate, Verified 02/03/23 13:06) stomach upset pantoprazole Allergy (Intermediate, Verified 02/03/23 13:06) stomach upset lubiprostone [Amitiza] Adverse Reaction (Intermediate, Verified 02/03/23 13:06) GI upset Medication List - Last Reconciled 02/03/23 by La Howell MD amlodipine 5 mg PO DAILY 90 days isoniazid 300 mg PO DAILY 90 days lisinopril 20 mg PO DAILY 90 days pyridoxine (vitamin B6) 50 mg PO DAILY 90 days Tobacco use date assessed: 02/03/23 Fall risk assessment: No Falls in past year Last assessed Fall Risk: 02/03/23 Dental Screening Dental Screen Date: 02/03/23 Did you have a dental visit in the last 12 months?: Yes Did you have a dental problem in the last 6 months where you did not have access to dental care?: No Was dental information given to patient?: Patient has dentist HPI HPI Comments History of Present Illness Details This is a 72-year-old female that comes for her physical exam. Last colonoscopy was 2012 and was normal. Was referred today through open access. Last mammogram was December 2021 and will call for an appointment. No chest pain or shortness of breath. 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 Chest x-ray show 1.2 cm lung nodule in right upper lobe and chest CT was ordered. [facility] Medical History Ankle fracture, right Dyslipidemia Essential hypertension Right ankle swelling Uncontrolled hypertension Surgical History History of tubal ligation Family History Father Prostate cancer Diabetes Mother No problems noted. Paternal Grandmother Vaginal cancer Paternal Aunt Cervical cancer Son In good health Sister In good health Sister In good health Daughter In good health Daughter In good health Social History Housing: House Alcohol intake: never Patient Tobacco Use Status: Never used Tobacco e-Cigarette/Vaping Use: Never Used Second Hand Smoke Exposure: No service: No Current occupational status: unemployed Cognitive needs: No Hearing needs: No Vision needs: Yes Questionnaire Thrive Questionnaire Date Thrive assessed: 09/21/22 NELDA-7 AMB Questionnaire NELDA-7 Date NELDA - 7 assessed: 09/21/22 Source: Developed by Drs. Jarocho Andrade, Cinthya Tadeo, Lanre Forrest and colleagues, with an educational kayla from [employer]. Review of Systems Const All systems reviewed & are unremarkable except as noted in HPI and below Eyes Reports no additional complaints, Denies change in vision and Denies other visual disturbances Card Denies chest pain at rest, Denies chest pain with activity, Denies edema, Denies irregular heart rhythm, Denies claudication, Denies dyspnea, Denies dyspnea on exertion, Denies orthopnea, Denies paroxysmal nocturnal dyspnea and Denies slow heart rate Resp Denies cough, Denies dyspnea and Denies dyspnea on exertion GI Denies abdominal pain, Denies change in bowel habits, Denies excessive flatus, Denies nausea and Denies vomiting Denies urinary incontinence, Denies urinary hesitancy and Denies urinary urgency Musc Denies abnormal gait, Denies atrophy, Denies deformity and Denies limited range of motion Skin/Breast Denies bleeding lesions, Denies changing lesions and Denies rash Neuro Denies abnormal gait and Denies lack of coordination Physical exam (Primary Care) Vital Signs: Last Vital Signs Pulse 76 02/03/23 12:54 BP 120/60 02/03/23 12:54 Pulse Ox 98 02/03/23 12:54 Oxygen Delivery Method Room Air 02/03/23 12:54 BMI result Body Mass Index 26.2 Tobacco/Smoking Status: Tobacco use Status Tobacco use date assessed 02/03/23 02/03/23 12:57 Patient Tobacco Use Status Never used Tobacco 02/03/23 12:57 e-Cigarette/Vaping Use Never Used 02/03/23 12:57 Thrive Assessment: Date of Thrive Assessment Date Thrive assessed 09/21/22 02/03/23 12:57 Const Orientation/consciousness: patient oriented x3 HENMT Head: Yes normal to inspection, Yes normocephalic and Yes atraumatic Ears: external ears normal Eyes General: appearance normal, both eyes and all related structures Eyelids: Yes eyelids normal Conjunctivae: conjunctivae normal Neck Neck: Yes normal visual inspection and Yes supple Resp Effort & Inspection: normal respiratory effort Auscultation: clear to auscultation bilaterally Cardio Jugular venous distension: no JVD Rate: regular rate Rhythm: regular rhythm Heart sounds: S1 normal heart sound present and S2 normal heart sound present GI Inspection: Yes normal to inspection Palpation (GI): Soft to palpation and nontender Auscultation: normal bowel sounds Skin General skin exam: no rashes or lesions noted Neuro General: patient oriented x3 and no focal motor deficits Extrem General: Yes full ROM Psych Appearance: grossly normal Assessment and Plan Assessment & Plan (1) Physical exam: Code(s): Z00.00 - Encounter for general adult medical examination without abnormal findings Plan: Repeat in a year Orders: Orders CT chest wo IV con Today R91.1 - Solitary pulmonary nodule Comprehensive [place]. Panel Fast Today R91.1 - Solitary pulmonary nodule Lipid Panel Today E78.5 - Hyperlipidemia, unspecified Complete Blood Count Auto Diff Today R91.1 - Solitary pulmonary nodule Coding Level of Care Code Est Pt Prev Care >65y(42104) Diagnoses Physical exam Z00.00 Time Spent (min) 32
[2023-02-03 12:54] VITALS: BP 120/60; PULSE 76; O2SAT 98; BMI 26.2
== END 2023-02-03 13:19 | disposition home or self-care (01) ==
LOC: HO.HMGH 12:15
PROVIDERS: PCP Internal Medicine; Visit Provider Internal Medicine
DX: Z00.00 Encounter for general adult medical examination without abnormal findings (principal)
CPT/HCPCS: 99397

== ENCOUNTER 2023-03-12 15:59 | Outpatient (REF) | payer OTHER, SELFPAY ==
--- NOTE | ~2023-03-12 | CT_ITS ---
EXAMINATION: CT CHEST WITHOUT CONTRAST CLINICAL INFORMATION: Pulmonary nodule. COMPARISON: Previous chest x-ray most recent December 2022. TECHNIQUE: Multidetector volumetric CT imaging of the chest was done. Axial MIP volume rendering provided. Sagittal and coronal reformatted images were obtained. This CT examination was performed using dose optimization techniques as appropriate, variously including the following: *Automated exposure control *Adjustment of mA and/or kV according to patient size (this includes techniques or standardized protocols for targeted exams where dose is matched to indication/reason for exam; i.e. extremities or head) *Use of iterative reconstruction technique DLP: 129 mGy-cm FINDINGS: LUNGS: Biapical pleural and parenchymal scarring, right greater than left. Deeper irregularly-shaped right upper lobe nodule measuring maximum 0.8 x 2 cm axial image 52 series 5. Right upper lobe bronchiectasis and focal bronchiectasis in the medial apical right upper lobe. Calcified clustered right upper lobe nodules adjacent to the focal area of bronchiectasis. Largest measuring 4 x 8 mm. More peripheral lateral right upper lobe clustered calcified and noncalcified nodules. Largest noncalcified nodule measures 2 x 4 mm axial image 113 series 5. Largest calcified nodule measures 2 mm. MEDIASTINUM: The mediastinum is normal. CORONARY ARTERY CALCIFICATION: None visualized on this study. PLEURA: There is no pleural effusion. Focal pleural thickening adjacent to the right upper lobe and major fissure and posterior to the superior segment of the right lower lobe. AXILLA: No lymphadenopathy. UPPER ABDOMEN: Unremarkable. OSSEOUS STRUCTURES: Unremarkable. CT/CT chest wo IV con IMPRESSION: Right upper lobe pleural and parenchymal scarring and deeper pulmonary nodules, largest measuring 0.8 x 1.8 cm. This may be related to biapical pleuroparenchymal scarring. Focal right upper lobe bronchiectasis. Clustered right upper lobe calcification, some of which may represent calcified broncholiths. This probably represents a postinfectious or inflammatory process. Chest CT followup in 6-12 and 18-24 months recommended. Fleischner guidelines were followed.
== END 2023-03-12 16:00 | disposition home or self-care (01) ==
LOC: HO.CT 15:59
PROVIDERS: PCP Internal Medicine; Visit Provider Internal Medicine
DX: R91.1 Solitary pulmonary nodule (principal)
CPT/HCPCS: 71250

== ENCOUNTER 2023-04-02 07:15 | Outpatient (AMB) | payer OTHER, SELFPAY ==
--- NOTE | 2023-04-02 07:18 | MHC.PC.OV ---
Vital Signs 04/02/23 07:19 Height 5 ft 3 in Weight 148 lb BMI 26.2 BP 132/82 Blood Pressure Location Lt brachial Position Sitting Pulse 81 Pulse Source Pulse Oximeter Pulse Oximetry (%) 97 Oxygen Delivery Method Room Air Intake Visit Reasons: abnormal chest CT Equipment Detailer Required: Yes Equipment Detailer Name: Jefferson [id number] Information Interpreted: non-clinical & clinical Allergies lansoprazole [Prevacid] Allergy (Intermediate, Verified 04/02/23 07:19) stomach upset pantoprazole Allergy (Intermediate, Verified 04/02/23 07:19) stomach upset lubiprostone [Amitiza] Adverse Reaction (Intermediate, Verified 04/02/23 07:19) GI upset Tobacco use date assessed: 02/03/23 Fall risk assessment: No Falls in past year Last assessed Fall Risk: 04/02/23 Dental Screening Dental Screen Date: 04/02/23 Did you have a dental visit in the last 12 months?: Yes Did you have a dental problem in the last 6 months where you did not have access to dental care?: No Was dental information given to patient?: Patient has dentist HPI HPI Comments History of Present Illness Details 72-year-old female past medical history significant for hypertension, dyslipidemia, pulmonary scarring and lung nodules. Patient . This is my 1st time meeting the patient, patient presents today for an abnormal chest CT.Review of the notes patient is at immigrant from [place] in 2008 has had a positive PPD test in the past chest x-ray completed in December which revealed MPRESSION: 1. No significant change since 09/25/2022. 2. Again noted approximately 1.2 cm nodularity in the right upper lobe with irregular margins, malignancy is not excluded. Further evaluation with chest CT is recommended. 3. Right greater than left biapical pleural parenchymal thickening and scarring. Patient was referred to [facility] tuberculosis [facility], it was noted patient has a history of prior TB which was treated. No active TB patient was recommended to follow-up in 6 months for repeat chest x-ray. Abnormal chest CT scan revealed parenchymal scarring and pulmonary nodules. CT scan reviewed with associate professor plant pathology. IMPRESSION: Right upper lobe pleural and parenchymal scarring and deeper pulmonary nodules, largest measuring 0.8 x 1.8 cm. This may be related to biapical pleuroparenchymal scarring. Focal right upper lobe bronchiectasis. Clustered right upper lobe calcification, some of which may represent calcified broncholiths. This probably represents a postinfectious or inflammatory process. Chest CT followup in 6-12 and 18-24 months recommended. Patient states has appointment with [facility] clinic. Patient denies any cough, hemoptysis, fever, chills or night sweats. Patient denies any shortness of breath. Case reviewed with CT scan to be repeated in 6 months, order entered. [facility] Medical History Ankle fracture, right Dyslipidemia Essential hypertension Right ankle swelling Uncontrolled hypertension Surgical History History of tubal ligation Family History Father Prostate cancer Diabetes Mother No problems noted. Paternal Grandmother Vaginal cancer Paternal Aunt Cervical cancer Son In good health Sister In good health Sister In good health Daughter In good health Daughter In good health Social History Housing: House Alcohol intake: never Patient Tobacco Use Status: Never used Tobacco e-Cigarette/Vaping Use: Never Used Second Hand Smoke Exposure: No service: No Current occupational status: unemployed Cognitive needs: No Hearing needs: No Vision needs: Yes Questionnaire PHQ-9 Over the last 2 weeks, how often have you been bothered by any of the following problems? 1. Little interest or pleasure in doing things: not at all 2. Feeling down, depressed, or hopeless: not at all 3. Trouble falling or staying asleep, or sleeping too much: not at all 4. Feeling tired or having little energy: not at all 5. Poor appetite or overeating: not at all 6. Feeling bad about yourself - or that you are a failure or have let yourself or your family down: not at all 7. Trouble concentrating on things, such as reading the newspaper or watching television: not at all 8. Moving or speaking so slowly that other people could have noticed. Or the opposite - being so fidgety or restless that you have been moving around a lot more than usual: not at all 9. Thoughts that you would be better off or of hurting yourself in some way: not at all Total score: 0 Depression Screening Interpretation: Negative Depression Screening Done: Yes [id number] - PHQ-9 Billing: Yes Source: Developed by Drs. Jarocho Andrade, Lanre Dougherty and colleagues, with an educational kayla from [employer]. Thrive Questionnaire Date Thrive assessed: 09/21/22 AUDIT C Alcohol Use Questionnaire (AUDIT-C) 1. How often do you have a drink containing alcohol?: Never Total Score: 0 NELDA-7 AMB Questionnaire NELDA-7 Date NELDA - 7 assessed: 09/21/22 Source: Developed by Drs. Jarocho Andrade, Cinthya Tadeo, Lanre Forrest and colleagues, with an educational kayla from [employer]. Review of Systems Const Denies chills, Denies fatigue, Denies fever(s) and Denies poor appetite Eyes Denies no additional complaints ENT Reports Normal hearing present Card Denies chest pain, Denies syncope, Denies rapid heart rate and Denies dyspnea Resp Denies cough and Denies dyspnea GI Denies change in stool character, Denies constipation, Denies diarrhea, Denies nausea and Denies vomiting Denies urinary frequency, Denies dysuria and Denies urinary urgency Neuro Reports Normal hearing present, Denies confusion and Denies syncope Psych Denies confusion Endo Denies fatigue Physical exam (Primary Care) Vital Signs: Last Vital Signs Pulse 81 04/02/23 07:19 BP 132/82 04/02/23 07:19 Pulse Ox 97 04/02/23 07:19 Oxygen Delivery Method Room Air 04/02/23 07:19 BMI result Body Mass Index 26.2 Tobacco/Smoking Status: Tobacco use Status Tobacco use date assessed 02/03/23 04/02/23 07:23 Patient Tobacco Use Status Never used Tobacco 04/02/23 07:23 e-Cigarette/Vaping Use Never Used 04/02/23 07:23 PHQ-9: PHQ-9 Score PHQ-9: Total score 0 04/02/23 07:30 Depression Screening Interpretation: Negative Thrive Assessment: Date of Thrive Assessment Date Thrive assessed 09/21/22 04/02/23 07:23 Const General: No confusion Orientation/consciousness: No confusion HENMT Head: Yes normocephalic and Yes atraumatic Eyes Conjunctivae: conjunctivae normal Chest Chest palpation & inspection: normal inspection of the chest Resp Effort & Inspection: normal respiratory effort Auscultation: clear to auscultation bilaterally, no crackles, no rhonchi and no wheezes Cardio Rate: regular rate Rhythm: regular rhythm Heart sounds: S1 normal heart sound present and S2 normal heart sound present GI Inspection: Yes normal to inspection Neuro General: No confusion Cranial nerves: Yes Normal hearing present Extrem General: No edema Office Procedures Flu Questionnaire Does the patient have a severe egg allergy?: No Does the patient have severe life threatening allergies?: No Does the patient have a fever or illness today?: No Has the patient ever had Guillain-[place] Syndrome?: No Has the patient ever had any past reaction to a flu shot?: No Immunizations flu vacc [id number] 6mos up(PF) 60 mcg(15 mcgx4)/0.5 mL IM syringe Performing Provider: TAQUERIA Castillo [facility] Documented (not given) by: Gabriella Zayas CMA on 04/02/23 07:24 Reason Not Given: Patient Refused Assessment and Plan Assessment & Plan (1) Lung nodule: Code(s): R91.1 - Solitary pulmonary nodule Plan: Repeat CT scan ordered in 6 months. Patient advised to continue to follow with [facility] clinic. (2) Pulmonary scarring: Code(s): J98.4 - Other disorders of lung (3) Essential hypertension: Code(s): I10 - Essential (primary) hypertension Plan: Continue on amlodipine and lisinopril. Continue to follow low-salt diet and exercise. Blood pressure optimal in office today. Plan Keep scheduled follow-up with in May or follow up sooner if needed. Orders: Orders CT chest wo IV con 6 Months J98.4 - Other disorders of lung, R91.1 - Solitary pulmonary nodule Influenza [id number] Immunization Today Z23 - Encounter for immunization Coding Level of Care Code Est Pt Level 3 (79361) Diagnoses Lung nodule R91.1 Pulmonary scarring J98.4 Essential hypertension I10
[2023-04-02 07:19] VITALS: BP 132/82; PULSE 81; O2SAT 97; BMI 26.2
== END 2023-04-02 08:25 | disposition home or self-care (01) ==
PROVIDERS: PCP Internal Medicine; Visit Provider Nurse Practitioner Family
DX: R91.1 Solitary pulmonary nodule (principal); J98.4 Other disorders of lung; I10 Essential (primary) hypertension; Z23 Encounter for immunization
CPT/HCPCS: 99213

== ENCOUNTER 2023-06-07 16:16 | Outpatient (AMB) | payer OTHER, SELFPAY ==
--- NOTE | 2023-06-07 16:20 | MHC.PC.OV ---
Vital Signs 06/07/23 16:22 Height 5 ft 3 in Weight 148 lb 8 oz BMI 26.3 BP 130/82 Blood Pressure Location Lt brachial Position Sitting Pulse 78 Pulse Source Palpation Intake Visit Reasons: bp,lung nodule Personal Service Workers Required: No Accompanied by: Self / Same As Patient Allergies lansoprazole [Prevacid] Allergy (Intermediate, Verified 06/07/23 16:27) stomach upset pantoprazole Allergy (Intermediate, Verified 06/07/23 16:27) stomach upset lubiprostone [Amitiza] Adverse Reaction (Intermediate, Verified 06/07/23 16:27) GI upset Medication List - Last Reconciled 06/07/23 by La Howell MD amlodipine 5 mg PO DAILY 90 days lisinopril 20 mg PO DAILY 90 days Tobacco use date assessed: 02/03/23 Fall risk assessment: 1 Fall in past year Last assessed Fall Risk: 06/07/23 Dental Screening Dental Screen Date: 06/07/23 Did you have a dental visit in the last 12 months?: No Did you have a dental problem in the last 6 months where you did not have access to dental care?: No Was dental information given to patient?: No HPI HPI Comments History of Present Illness Details This is a 71-year-old female with hypertension, dyslipidemia, history of blood in stools and lung nodule that comes today for follow-up on her conditions. Blood pressure stable. Lipid panel will be order. Will have a colonoscopy in June for her blood in the stools. Has a lung nodule that has not changed and will call pulmonology for appointment. Denies any chest pain, shortness of breath or cough. FOR[facility] Medical History (Updated 06/07/23 @ 16:37 by La Howell MD) Uncontrolled hypertension Ankle fracture, right Dyslipidemia Right ankle swelling Essential hypertension Surgical History History of tubal ligation Family History Father Prostate cancer Diabetes Mother No problems noted. Paternal Grandmother Vaginal cancer Paternal Aunt Cervical cancer Son In good health Sister In good health Sister In good health Daughter In good health Daughter In good health Social History Housing: House Alcohol intake: never Patient Tobacco Use Status: Never used Tobacco e-Cigarette/Vaping Use: Never Used Second Hand Smoke Exposure: No service: No Current occupational status: unemployed Cognitive needs: No Hearing needs: No Vision needs: Yes Questionnaire Thrive Questionnaire Date Thrive assessed: 09/21/22 NELDA-7 AMB Questionnaire NELDA-7 Date NELDA - 7 assessed: 09/21/22 Source: Developed by Drs. Jarocho Andrade, Cinthya Tadeo, Lanre Forrest and colleagues, with an educational kayla from [employer]. Review of Systems Const All systems reviewed & are unremarkable except as noted in HPI and below Eyes Reports no additional complaints, Denies change in vision and Denies other visual disturbances ENT Denies change in voice, Denies lip swelling, Denies nasal discharge and Denies sinus pain Card Denies chest pain at rest, Denies chest pain with activity, Denies edema, Denies irregular heart rhythm, Denies claudication, Denies dyspnea, Denies dyspnea on exertion, Denies orthopnea, Denies paroxysmal nocturnal dyspnea and Denies slow heart rate Resp Denies cough, Denies dyspnea and Denies dyspnea on exertion GI Denies abdominal pain, Denies change in bowel habits, Denies excessive flatus, Denies nausea and Denies vomiting Denies urinary incontinence, Denies urinary hesitancy and Denies urinary urgency Musc Denies abnormal gait, Denies atrophy, Denies deformity and Denies limited range of motion Skin/Breast Denies bleeding lesions, Denies changing lesions and Denies rash Neuro Denies abnormal gait, Denies behavioral changes and Denies lack of coordination Psych Denies behavioral changes Aller/Immun Denies urticaria and Denies lip swelling Physical exam (Primary Care) Vital Signs: Last Vital Signs Pulse 78 06/07/23 16:22 BP 130/82 06/07/23 16:22 BMI result Body Mass Index 26.3 Tobacco/Smoking Status: Tobacco use Status Tobacco use date assessed 02/03/23 06/07/23 16:21 Patient Tobacco Use Status Never used Tobacco 06/07/23 16:21 e-Cigarette/Vaping Use Never Used 06/07/23 16:21 Thrive Assessment: Date of Thrive Assessment Date Thrive assessed 09/21/22 06/07/23 16:21 Eyes General: appearance normal, both eyes and all related structures Eyelids: Yes eyelids normal Conjunctivae: conjunctivae normal Neck Neck: Yes normal visual inspection and Yes supple Resp Effort & Inspection: normal respiratory effort Auscultation: clear to auscultation bilaterally Cardio Jugular venous distension: no JVD Rate: regular rate Rhythm: regular rhythm Heart sounds: S1 normal heart sound present and S2 normal heart sound present Extrem General: Yes full ROM Assessment and Plan Assessment & Plan (1) Essential hypertension: Code(s): I10 - Essential (primary) hypertension Plan: Continue lisinopril and amlodipine. Blood pressure goal is equal or less than 130/80. (2) Dyslipidemia: Code(s): E78.5 - Hyperlipidemia, unspecified Plan: Continue low-cholesterol diet. Repeat lipid panel. (3) Bloody stools: Code(s): K92.1 - Melena Plan: Colonoscopy will be done next month. (4) Lung nodule: Code(s): R91.1 - Solitary pulmonary nodule Plan: Follow-up with pulmonology. Orders: Orders Lipid Panel Today E78.5 - Hyperlipidemia, unspecified US breast LT complete Today Z12.39 - Encounter for other screening for malignant neoplasm of breast breast RT complete Today Z12.39 - Encounter for other screening for malignant neoplasm of breast Comprehensive Stephen. Panel Fast Today I10 - Essential (primary) hypertension Coding Level of Care Code Est Pt Level 4 (86063) Diagnoses Essential hypertension I10 Dyslipidemia E78.5 Bloody stools K92.1 Lung nodule R91.1 Time Spent (min) 21
[2023-06-07 16:22] VITALS: BP 130/82; PULSE 78; BMI 26.3
== END 2023-06-07 16:37 | disposition home or self-care (01) ==
PROVIDERS: PCP Internal Medicine; Visit Provider Internal Medicine
DX: I10 Essential (primary) hypertension (principal); E78.5 Hyperlipidemia, unspecified; K92.1 Melena; R91.1 Solitary pulmonary nodule
CPT/HCPCS: 99214

== ENCOUNTER 2023-06-10 13:50 | Outpatient (REF) | payer OTHER, SELFPAY ==
--- NOTE | ~2023-06-10 | US_ITS ---
EXAMINATION: US BREAST, BILATERAL CLINICAL INFORMATION: Patient refuses mammography. COMPARISON: Mammography 12/31/2021. No prior ultrasound. TECHNIQUE: High-resolution grayscale sonography of the bilateral breasts was performed by a technologist with a high frequency linear transducer following a standardized protocol.All 4 quadrants of each breast including retroareolar areas were imaged FINDINGS: LEFT BREAST: On the images submitted for review, no mass, area of architectural distortion, complex cyst or other sonographically suspicious lesion is identified. RIGHT BREAST: On the images submitted for review, no mass, area of architectural distortion, complex cyst or other sonographically suspicious lesion is identified. US/US breast RT complete mammo IMPRESSION: No sonographic evidence of malignancy in either breast. ASSESSMENT: Left breast: BI-RADS 1 Right breast: BI-RADS 1 RECOMMENDATIONS: Routine screening.
--- NOTE | ~2023-06-10 | US_ITS ---
EXAMINATION: US BREAST, BILATERAL CLINICAL INFORMATION: Patient refuses mammography. COMPARISON: Mammography 12/31/2021. No prior ultrasound. TECHNIQUE: High-resolution grayscale sonography of the bilateral breasts was performed by a technologist with a high frequency linear transducer following a standardized protocol.All 4 quadrants of each breast including retroareolar areas were imaged FINDINGS: LEFT BREAST: On the images submitted for review, no mass, area of architectural distortion, complex cyst or other sonographically suspicious lesion is identified. RIGHT BREAST: On the images submitted for review, no mass, area of architectural distortion, complex cyst or other sonographically suspicious lesion is identified. US/US breast LT complete mammo IMPRESSION: No sonographic evidence of malignancy in either breast. ASSESSMENT: Left breast: BI-RADS 1 Right breast: BI-RADS 1 RECOMMENDATIONS: Routine screening.
== END 2023-06-10 13:51 | disposition home or self-care (01) ==
LOC: HO.MAMMO 13:50
PROVIDERS: PCP Internal Medicine; Visit Provider Internal Medicine
DX: Z12.39 Encounter for other screening for malignant neoplasm of breast (principal)
CPT/HCPCS: 76641

== ENCOUNTER → 2023-06-10 14:00 | Outpatient (BNV) | payer OTHER, SELFPAY | PROVIDERS: PCP Internal Medicine; Visit Provider Radiology Diagnostic Radiology | DX: Z12.39 Encounter for other screening for malignant neoplasm of breast (principal) | CPT/HCPCS: 76641 ==

== ENCOUNTER 2023-07-12 07:29 | Day surgery (SDC) | payer OTHER, SELFPAY ==
--- NOTE | 2023-07-09 09:48 | HO.ANESPROP2 ---
Documented by User: Nicci Moore NP 07/09/23 09:49 HPI - Anesthesia Eval Consult details Narrative: 72yo F for Colonoscopy PMFSH Active Problems Active Problems: All Active Problems (Updated 07/08/23 @ 11:09 by Irlanda Connolly RN) Screening for breast cancer (Acute) Bloody stools (Acute) Lung nodule (Acute) Pulmonary scarring (Acute) Positive PPD (Acute) Painful arc syndrome of right shoulder (Acute) Painful arc syndrome of left shoulder (Acute) Physical exam (Acute) Left shoulder pain (Acute) Thoracic back pain (Acute) Right shoulder pain (Acute) Ankle fracture, right (Acute) Dyslipidemia (Acute) Right ankle swelling (Acute) Essential hypertension (Acute) Past Medical History Medical History Latent tuberculosis Lung nodule Ankle fracture, right Dyslipidemia Right ankle swelling Essential hypertension Family History Family History Father Prostate cancer Diabetes Mother No problems noted. Paternal Grandmother Vaginal cancer Paternal Aunt Cervical cancer Son In good health Sister In good health Sister In good health Daughter In good health Daughter In good health Surgical History Surgical History H/O colonoscopy History of tubal ligation Social History Social History Housing: House Alcohol intake: never Patient Tobacco Use Status: Never used Tobacco e-Cigarette/Vaping Use: Never Used Second Hand Smoke Exposure: No Advance Directives: No Advance Directives Information Provided: Yes service: No Current occupational status: unemployed Cognitive needs: No Hearing needs: No Vision needs: Yes Meds Allergies Allergy/AdvReac Type Severity Reaction Status Date / Time lansoprazole [Prevacid] Allergy Intermediate stomach Verified 06/07/23 16:27 upset pantoprazole Allergy Intermediate stomach Verified 06/07/23 16:27 upset lubiprostone [Amitiza] AdvReac Intermediate GI upset Verified 06/07/23 16:27 Assessment and Plan Assessment Anesthesia Assessment: Chart Reviewed Documented by User: Lorena Velasquez MD 07/12/23 07:51 PMFSH Past Medical History Medical History Latent tuberculosis Lung nodule Ankle fracture, right Dyslipidemia Right ankle swelling Essential hypertension Family History Family History Father Prostate cancer Diabetes Mother No problems noted. Paternal Grandmother Vaginal cancer Paternal Aunt Cervical cancer Son In good health Sister In good health Sister In good health Daughter In good health Daughter In good health Family history of problems with anesthesia: No Surgical History Surgical History H/O colonoscopy History of tubal ligation History of Problems with Anesthesia: No Social History Social History Housing: House Alcohol intake: never Patient Tobacco Use Status: Never used Tobacco e-Cigarette/Vaping Use: Never Used Second Hand Smoke Exposure: No Advance Directives: No Advance Directives Information Provided: Yes service: No Current occupational status: unemployed Cognitive needs: No Hearing needs: No Vision needs: Yes Meds Allergies Allergy/AdvReac Type Severity Reaction Status Date / Time lansoprazole [Prevacid] Allergy Intermediate stomach Verified 06/07/23 16:27 upset pantoprazole Allergy Intermediate stomach Verified 06/07/23 16:27 upset lubiprostone [Amitiza] AdvReac Intermediate GI upset Verified 06/07/23 16:27 Exam Airway Mallampati Class: II TM Dist: >3cm Neck ROM: Full Heart: rrr Lungs: cta Assessment and Plan Assessment Anesthesia Assessment: Anesthesia Plan Discussed Final Anesthetic Review Family History of Problems with Anesthesia: No History of Problems with Anesthesia: No NPO: Yes ASA Class: II Final Preanesthetic Review: No Changes in Pt Med Stat, Meds/Allgs Chart Reviewed, Consent Obtained/Reviewed and Anes Risks/Benef Reviewed Patient Risk: Low Procedure Risk: Low Anesthetic Plan Anesthetic Plan: MAC: Disposition: Standard PACU
[2023-07-12 07:37] VITALS: BMI 26.1
--- NOTE | 2023-07-12 07:55 | MHC.SHP ---
Pre-Procedural Eval Section A Date of Service: 07/12/23 The patient is an INPATIENT: No The History & Physical has been completed within 30 days and I have reviewed it.: No Section B Chief Complaint: Colon cancer screening, blood in the stool Details of Present Illness: Pt denies recent change in bowel habits, black stools Relevant Family History (Specify if Yes): No Relevant Social History: None Present Medications: see Short Stay Collaborative assessment Medical History: Significant History (Uncontrolled hypertension Ankle fracture, right Dyslipidemia Right ankle swelling Essential hypertension) History of Previous Operations: Relevant previous surgery/procedure and date(s) (History of tubal ligation) Allergies: Allergies Allergy/AdvReac Type Severity Reaction Status Date / Time lansoprazole [Prevacid] Allergy Intermediate stomach Verified 07/12/23 07:54 upset pantoprazole Allergy Intermediate stomach Verified 07/12/23 07:54 upset lubiprostone [Amitiza] AdvReac Intermediate GI upset Verified 07/12/23 07:54 Review of Systems Sugical H&P ROS: Negative: Constitution, Cardiovascular, Respiratory and Gastrointestinal Exam Surgical H&P Exam: Normal: Heart, Normal: Lungs, Normal: Extremities and Normal: Abdomen Plan Diagnosis/Plan: Change (proceed with colonoscopy) I have reviewed the history and physical and performed a pertinent physical examination on my patient. No changes have occurred unless specified. Time Spent With Patient Time: Total time managing care of this patient today ____ minutes.
[2023-07-12 08:05] VITALS: BP 140/86; PULSE 92; RESP 16; TEMP 36.4; O2SAT 99
[2023-07-12] MEDS: Lactated Ringers 1,000 ML 100 ML IVCONT (08:06)
--- NOTE | 2023-07-12 09:16 | W.PM.OPN ---
Operative Note Operative Note Date of Service: 07/12/23 Narrative: COLONOSCOPY TILL CECUM Pre-op diagnosis: Colon cancer screening Post-op diagnosis:? Diverticulosis Endoscopist:? Juan Alberto Hardy MD Anesthesia:?MAC Consent: Indications for the procedure and potential complications of bleeding, perforation, reaction to medications and missed diagnosis were discussed with the patient and informed consent was obtained. Instrument: Olympus PCF H 190 L variable stiffness pediatric colonoscope Monitoring: Vital signs and clinical assessment, intermittent blood pressure monitoring, continuous EKG monitoring, Pulse oximetry and Carbon Dioxide monitoring were done throughout the procedure. Please see anesthesia flowsheet. Colon withdrawl time was 13 minutes. Procedure: The patient was placed in the left lateral decubitis position and pre-procedure medications were administered. After a digital rectal examination of the ano-rectum, the video colonoscope was inserted into the rectum and advanced through the colon to the ICV. The colonoscope was slowly withdrawn in a retrograde panoramic fashion and the colon mucosa was carefully examined including a retroflexed view of the rectum. Findings and interventions are described below. Procedure Difficulty: Colon was long and tortuous and there was recurrent loop formation. Patient was placed in the supine position with application of abdominal pressure to intubate the ascending colon Findings: Terminal Ileum: Not evaluated Cecum: Partially visualized across the ICV and appeared normal. Ascending Colon: Normal Transverse Colon: Normal Descending Colon: Normal Sigmoid Colon: Moderate diverticulosis Rectum: Normal Ano-rectum: Normal Colon preparation: Good in the right and transverse colon after copious irrigation and Fair in the left colon due to undigested vegetable matter which could not be suctioned [place] Bowel Preparation Scale Right colon; 2 Transverse colon: 2 Left colon; 1 (0 = Unprepared colon segment with mucosa not seen due to solid stool that cannot be cleared. 1 = Portion of mucosa of the colon segment seen, but other areas of the colon segment not well seen due to staining, residual stool and/or opaque liquid. 2 = Minor amount of residual staining, small fragments of stool and/or opaque liquid, but mucosa of colon segment seen well. 3 = Entire mucosa of colon segment seen well with no residual staining, small fragments of stool or opaque liquid) Impression and Post Procedure Diagnosis: Colonoscopy Findings: No polyps were detected Moderate diverticulosis seen in the sigmoid colon Colon prep was good in the right and transverse colon after copious irrigation and Fair in the left colon due to undigested vegetable matter which could not be suctioned Plan: Repeat Colonoscopy in 2-3 years due to fair prep in the left colon (adult colonoscope for future colonoscopies) Above findings were reviewed with the patient and diverticulosis handout was given in the discharge area
[2023-07-12 10:05] VITALS: BP 105/70; PULSE 85; RESP 16; TEMP 36.1; O2SAT 95
[2023-07-12 10:20] VITALS: BP 119/79; PULSE 79; RESP 16; O2SAT 97
[2023-07-12 10:35] VITALS: BP 124/78; PULSE 72; RESP 16; TEMP 36.2; O2SAT 97
== END 2023-07-12 11:42 | disposition home or self-care (01) ==
PROVIDERS: PCP Internal Medicine; Visit Provider Internal Medicine Gastroenterology
PROC: 0DJD8ZZ Inspection of Lower Intestinal Tract, Via Natural or Artificial Opening Endoscopic (ICD-10-PCS; CPT 45378; principal; 2023-07-12 09:20)
DX: Z12.11 Encounter for screening for malignant neoplasm of colon (principal); K57.30 Diverticulosis of large intestine without perforation or abscess without bleeding; K92.1 Melena; I10 Essential (primary) hypertension; E78.5 Hyperlipidemia, unspecified; R91.1 Solitary pulmonary nodule; Z79.899 Other long term (current) drug therapy; Z88.8 Allergy status to other drugs, medicaments and biological substances
CPT/HCPCS: G0121; J2704

== ENCOUNTER → 2023-07-12 07:29 | Outpatient (BNV) | payer OTHER, SELFPAY | PROVIDERS: PCP Internal Medicine; Visit Provider Internal Medicine Gastroenterology | DX: Z12.11 Encounter for screening for malignant neoplasm of colon (principal); K92.1 Melena; K57.30 Diverticulosis of large intestine without perforation or abscess without bleeding; Z91.199 Patient's noncompliance with other medical treatment and regimen due to unspecified reason | CPT/HCPCS: G0121 ==

== ENCOUNTER 2023-09-08 14:01 | Outpatient (REF) | payer OTHER, SELFPAY ==
--- NOTE | ~2023-09-08 | CT_ITS ---
EXAMINATION: CT CHEST WITHOUT CONTRAST CLINICAL INFORMATION: Solitary pulmonary nodule. COMPARISON: CT chest 03/12/2023. TECHNIQUE: Multidetector volumetric CT imaging of the chest was done. Axial MIP volume rendering provided. Sagittal and coronal reformatted images were obtained. Fleischner guidelines do not apply. This CT examination was performed using dose optimization techniques as appropriate, variously including the following: *Automated exposure control *Adjustment of mA and/or kV according to patient size (this includes techniques or standardized protocols for targeted exams where dose is matched to indication/reason for exam; i.e. extremities or head) *Use of iterative reconstruction technique DLP: 121 mGy-cm FINDINGS: LUNGS: Pleural-parenchymal scarring at the apices, right greater than left is unchanged including the more nodular focus of scarring that measures 1.9 x 0.9 cm on sagittal series 7 image 70 compared to 1.9 x 1.0 cm on sagittal series 7 image 64. Right upper lobe bronchiectasis is stable. MEDIASTINUM: Thoracic aorta is normal in caliber. No adenopathy. Small hiatal hernia. CORONARY ARTERY CALCIFICATION: None visualized on this study. PLEURA: There is no pleural effusion. No pleural mass or thickening. AXILLA: No lymphadenopathy. UPPER ABDOMEN: Unremarkable. OSSEOUS STRUCTURES: Mild degenerative changes in the spine. CT/CT chest wo IV con IMPRESSION: Stable pleural-parenchymal scarring at the right apex. Finding is likely post infectious/inflammatory. As per prior recommendation, recommend additional follow-up in 12 months from this exam and 18 months from the index study which would be due in August 2024.
== END 2023-09-08 14:02 | disposition home or self-care (01) ==
LOC: HO.CT 14:01
PROVIDERS: PCP Internal Medicine; Visit Provider Nurse Practitioner Family
DX: J98.4 Other disorders of lung (principal)
CPT/HCPCS: 71250

== ENCOUNTER 2023-09-23 16:06 | Outpatient (AMB) | payer OTHER, SELFPAY ==
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
[2023-09-23 16:12] VITALS: BP 136/80; BMI 27.5
== END 2023-09-23 16:24 | disposition home or self-care (01) ==
PROVIDERS: PCP Internal Medicine; Visit Provider Internal Medicine
DX: I10 Essential (primary) hypertension (principal)
CPT/HCPCS: 99213

== ENCOUNTER 2024-03-14 15:59 | Outpatient (AMB) | payer OTHER, SELFPAY ==
[2024-03-14 16:23] VITALS: BP 144/90; BMI 27.1
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
[2024-03-14 17:13] VITALS: BP 138/88
== END 2024-03-14 17:45 | disposition home or self-care (01) ==
PROVIDERS: PCP Internal Medicine; Visit Provider Internal Medicine
DX: Z00.00 Encounter for general adult medical examination without abnormal findings (principal); S09.90XA Unspecified injury of head, initial encounter

== ENCOUNTER → 2024-03-14 15:59 | Outpatient (BNVA) | payer OTHER, SELFPAY | PROVIDERS: PCP Internal Medicine; Visit Provider Internal Medicine | DX: Z00.01 Encounter for general adult medical examination with abnormal findings (principal); S09.90XA Unspecified injury of head, initial encounter; R76.11 Nonspecific reaction to tuberculin skin test without active tuberculosis; E78.5 Hyperlipidemia, unspecified | CPT/HCPCS: 96127; 99212 ==

== ENCOUNTER 2024-05-19 10:21 | Outpatient (REF) | payer OTHER, SELFPAY ==
--- NOTE | ~2024-05-19 | MM_ITS ---
EXAMINATION: MM SCREENING DIGITAL BREAST TOMOSYNTHESIS, BILATERAL CLINICAL INFORMATION: Screening. Asymptomatic. COMPARISON: Mammography: Comparison is made with available priors TECHNIQUE: Digital breast mammography with tomosynthesis is performed in both the craniocaudal and mediolateral oblique views along with computer-aided detection (CAD). FINDINGS: There are scattered areas of fibroglandular density (ACR BI-RADS breast composition Category b). Bilateral circumscribed oval masses consistent with benign fibrocystic changes. There are no significant masses, abnormal calcifications, or other abnormalities. MM/MM tomosynthesis screening BI IMPRESSION: No mammographic evidence of malignancy. ASSESSMENT: BI-RADS BI-RADS 2 - Benign Findings RECOMMENDATION: Routine annual mammography screening. 1 year F/U This examination should not preclude the clinical evaluation of a suspicious palpable abnormality. This patient's information was entered into a reminder system with a target due date for their next mammogram. Electronically signed by: Violette Mcknight DO 05/30/2024 10:49 AM [place]
--- NOTE | ~2024-05-19 | MM_ITS ---
EXAMINATION: BONE DENSITOMETRY CLINICAL INDICATION: Menopause. COMPARISON: This is the patient's baseline examination. TECHNIQUE: Using a [employer] DXA System (software version: 13.1) manufactured by [employer], dual-energy x-ray absorptiometry was performed of the lumbar spine and left hip. The images are of good technical quality. Summary results are attached. FINDINGS: LEFT FEMUR, NECK: BMD 0.858 g/cm2, Z-score 0.4, T-score -1.3, osteopenia. LEFT FEMUR, TOTAL: BMD 0.985 g/cm2, Z-score 1.3, T-score -0.2, normal. AP SPINE L1-L4: BMD 1.091 g/cm2, Z-score 0.8, T-score -0.7, normal. IDENTIFIED RISK FACTORS: Menopause, low calcium intake, recurrent falls. HISTORY OF FRACTURE: None listed. MEDICATIONS: None listed. MM/XR DEXA axial skeleton IMPRESSION: 1. DIAGNOSIS: Osteopenia based on the lowest T-score value of -1.3 in the femoral neck applying World Health Organization criteria. 2. 10-YEAR FRACTURE RISK PREDICTION, FRAX: Major osteoporotic fracture (clinical spine, forearm, hip or shoulder) 5.7%. Hip fracture 0.8%. 3. Treatment Recommendations: NOF guidelines recommend consideration for treatment in postmenopausal women and men age 50 and older presenting with the following: -A hip or vertebral (clinical or morphometric) fracture. -T-score less than or equal to -2.5 at the femoral neck or spine after appropriate evaluation to exclude secondary causes. -Low bone mass at the hip or spine and a 10-year fracture probability by FRAX of greater than or equal to 3% for hip fracture or greater than or equal to 20% for major osteoporotic fracture based on the [place] adapted WHO algorithm. 4. Other Recommendations: All treatment decisions require clinical judgment and consideration of individual patient factors, including patient preferences, comorbidities, previous drug use, risk factors not captured in the FRAX model (e.g. frailty, falls, vitamin D deficiency, increased bone turnover, interval significant decline in bone density) and possible under or overestimation of fracture risk by FRAX. Additional medical evaluation for secondary cause of low bone mineral density may be appropriate. FUTURE SCAN RECOMMENDATION: People with diagnosed cases of osteoporosis or at high risk for fracture should have regular bone mineral density tests. For patients eligible for Medicare, routine testing is allowed once every 2 years. The testing frequency can be increased to one year for patients who have rapidly progressing disease, those who are receiving or discontinuing medical therapy to restore bone mass, or have additional risk factors. Electronically signed by: Norma Minor MD 05/19/2024 06:15 PM [place] STRAUSS
== END 2024-05-19 10:22 | disposition home or self-care (01) ==
LOC: HO.MAMMO 10:21
PROVIDERS: PCP Internal Medicine; Visit Provider Internal Medicine
DX: Z12.31 Encounter for screening mammogram for malignant neoplasm of breast (principal); Z13.820 Encounter for screening for osteoporosis; Z78.0 Asymptomatic menopausal state
CPT/HCPCS: 77063; 77067; 77080

== ENCOUNTER → 2024-05-19 10:45 | Outpatient (BNV) | payer OTHER, SELFPAY | PROVIDERS: PCP Internal Medicine; Visit Provider Internal Medicine | DX: Z12.31 Encounter for screening mammogram for malignant neoplasm of breast (principal) | CPT/HCPCS: 77063; 77067 ==

== ENCOUNTER 2024-07-24 12:46 | Outpatient (REF) | payer OTHER, SELFPAY ==
--- NOTE | ~2024-07-24 | XR_ITS ---
CLINICAL HISTORY: S09.90XA - Unspecified injury of head, initial encounter 5 view skull Comparison: None Findings: No fractures or bone lesions. No periostitis or bony destructive lesions. Normal bone mineralization. Paranasal sinuses and mastoid air cells clear. Impression: 1. Normal skull. This document has been electronically signed by: Rubén Camargo MD on 07/25/2024 12:11:53
--- NOTE | ~2024-07-24 | XR_ITS ---
EXAMINATION: XR CHEST 2 VIEWS HISTORY: R76.11 - Nonspecific reaction to tuberculin skin test without active tuberculosis COMPARISON: Comparison is made with the prior examination dated 01/06/2023. FINDINGS: PA and lateral views of the chest are submitted. Again seen is right apical pleural and parenchymal scarring. No new airspace opacity is identified. There is no pleural effusion, pneumothorax, or pulmonary vascular congestion. The heart is normal in size. There is degenerative disc disease of the spine. XR/XR chest 2V IMPRESSION: Right apical pleural and parenchymal scarring. No acute cardiopulmonary abnormality. Electronically signed by: Jarocho Victor MD 07/24/2024 03:19 PM [facility]
--- OUTSIDE RECORDS SUMMARY | 2024-07-24 17:27 | XMS_ITS | Clinical Summary ---
Author Organization [employer] [facility] Address [address] [place] [address] Care Team Providers Care Shorts Sifter Name Role Phone Unavailable Primary Care Provider Unavailabl e Encounters Date Type Department Care Team Description 05/03/2024 Telephone [facility] [address], [place] [id number] Caitlin Murrieta Appointment 05/03/2024 Telephone [facility] [address] [place] [address] Margarita Farnsworth DMD from Last 3 Months Immunizations Name Administration Dates Next Due Pfizer Covid-19 Vaccine 12+ Bivalent 06/26/2022 Social History Tobacco Use Types Packs/Day Years Used Date Smoking Tobacco: Never Assessed Comments Unknown Sex and Gender Information Value Date Recorded Sex Assigned at Female 04/27/2022 10:40 AM EDT Legal Sex Female 10:40 AM EDT Gender Identity Female 04/27/2022 10:40 AM EDT Sexual Orientation Straight 04/27/2022 10 :40 AM EDT Plan of Treatment Health Maintenance Due Date Last Done Comments CT Colonography 1951 Colonoscopy 1951 Colorectal Cancer Screening 1950 Dental Oral Exam 1950 Dental Prophylaxis 1951 Dental X-Ray: Bitewings 1951 Dental X-Ray: Full Mouth 1951 Depression Screening 1951 FIT DNA/Cologuard 1951 FIT 1951 FOBT 1951 Lipid Panel 1951 SDOH Screening 1950 Sigmoidoscopy 1951 Alcohol/Substance Use Screening 1963 Tobacco Screening 1963 Hepatitis C Screening 10/19/1969 Mammogram 1991 Zoster Vaccines (1 of 2) 10/19/2001 Pneumococcal Vaccine: 65+ Years (2 of 2 - PCV) 03/15/2020 03/15/2019 COVID-19 Vaccine ( season) 2024 06/26/2022, 09/26/2021, 01/15/2021, Additional history exists Influenza Vaccine (#1) 2024 RSV Patients and Patients Aged 60 years or older (1 - 1-dose 75+ series) 10/19/2026 DTaP/Tdap/Td Vaccines (2 - Td or Tdap) 03/15/2029 03/15/2019 HIB Vaccines Aged Out No longer eligi ble based on patient's age to complete this topic HPV Vaccines Aged Out No longer eligi ble based on patient's age to complete this topic Hepatitis A Vaccines Aged Out No long er eligible based on patient's age to complete this topic Hepatitis B Vaccines Aged Out No long er eligible based on patient's age to complete this topic IPV Vaccines Aged Out No longer eligi ble based on patient's age to complete this topic Meningococcal Vaccine Aged Out No mt kristal eligible based on patient's age to complete this topic RSV under 20 months Aged Out No longe r eligible based on patient's age to complete this topic Rotavirus Vaccines Aged Out No longer eligible based on patient's age to complete this topic Insurance [facility] MEDICARE REPLACEMENT [facility] MEDICAID STAND ADULT
--- OUTSIDE RECORDS SUMMARY | 2024-07-24 17:27 | XMS_ITS | Encounter Summary ---
Author Organization [employer] [facility] Address [address] [place] [address] Care Team Providers Care Poultry Pinner Name Role Phone Unavailable Primary Care Provider Unavailabl e Encounter Details Date Type Department Care Team (Late st Contact Info) Description 05/03/2024 Telephone [facility] ADULT DENTAL [address] [place] [address] Margartia Farnsworth DMD Social History Tobacco Use Types Packs/Day Years Used Date Smoking Tobacco: Never Assessed Comments Unknown Sex and Gender Information Value Date Recorded Sex Assigned at Female 04/27/2022 10:40 AM EDT Legal Sex Female 10:40 AM EDT Gender Identity Female 04/27/2022 10:40 AM EDT Sexual Orientation Straight 04/27/2022 10 :40 AM EDT documented as of this encounter Plan of Treatment Not on file documented as of this encounter Visit Diagnoses Not on filedocumented in this encounter
--- OUTSIDE RECORDS SUMMARY | 2024-07-24 17:27 | XMS_ITS | Clinical Summary ---
Author Organization [facility] Address [address] [place] [id number] Care Team Providers Care Airport Duty Manager Name Role Phone La Mason MD Primary Care Provider [phone] Allergies No known active allergies Medications lisinopril 20 MG tablet Take 1 tablet by mouth 1 (one) time each day 06/13/2018 Active amLODIPine (NORVASC) 5 MG tablet 06/24/2021 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 Essential hypertension 07/18/2021 Social History Tobacco Use Types Packs/Day Years Used Date Smoking Tobacco: Never Alcohol Use Standard Drinks/Week Comments No 0 (1 standard drink = 0.6 oz pur e alcohol) Comments Unknown Sex and Gender Information Value Date Recorded Sex Assigned at Not on file Legal Sex Female 4:47 PM EST Gender Identity Not on file Sexual Orientation Not on file Last Filed Vital Signs Vital Sign Reading Time Taken Comments Blood Pressure 121/64 07/21/2021 3:40 PM EST Pulse 84 07/21/2021 3:40 PM EST Temperature - - Respiratory Rate - - Oxygen Saturation 98% 07/21/2021 3:40 PM EST Inhaled Oxygen Concentration - - Weight 68.6 kg (151 lb 3.2 oz) 07/21/2021 3:40 P M EST Height 160 cm (5' 3 ) 06/12/2019 12:00 PM EST Body Mass Index 26.78 06/12/2019 12:00 PM EST Plan of Treatment Health Maintenance Due Date Last Done Comments Breast Cancer Screening 1950 Colorectal Cancer Screening: Annual FOBT 10/19/2000 Colorectal Cancer Screening: Colonoscopy 10/19/2000 Colorectal Cancer Screening: Sigmoidoscopy 10/19/2000 Pneumococcal Vaccine: 65+ Ye ars (1 of 1 - PCV) 10/19/2016 Influenza Vaccine (#1) 2024 Hepatitis B Vaccine Aged Out No longe r eligible based on patient's age to complete this topic Insurance [place] Care Teams Airport Duty Manager Relationship Specialty Start Date End Date La Mason MD [address] [place], [place] PCP - General 07/08/20
--- OUTSIDE RECORDS SUMMARY | 2024-07-24 17:27 | XMS_ITS | Encounter Summary ---
Author Organization [facility] Address [address] [place] [address] Care Team Providers Care Medical Manager Name Role Phone Unavailable Primary Care Provider Unavailabl e Reason for Visit * Reason Onset Date Comments Appointment 05/03/2024 Encounter Details Date Type Department Care Team (Late st Contact Info) Description 05/03/2024 Telephone [facility] ADULT DENTAL [address] [place] [address] Glenny, Caitlin [address] [place] [address] Appointment Social History Tobacco Use Types Packs/Day Years Used Date Smoking Tobacco: Never Assessed Comments Unknown Sex and Gender Information Value Date Recorded Sex Assigned at Female 04/27/2022 10:40 AM EDT Legal Sex Female 10:40 AM EDT Gender Identity Female 04/27/2022 10:40 AM EDT Sexual Orientation Straight 04/27/2022 10 :40 AM EDT documented as of this encounter Miscellaneous Notes * Telephone Encounter - Caryl Venegas - 05/03/2024 12:40 PM EST Called pt to let know her [facility] was not active and got no answer. I had to cancel appt and will wait for her to eventually call back. CS documented in this encounter Plan of Treatment Not on file documented as of this encounter Visit Diagnoses Not on filedocumented in this encounter
== END 2024-07-24 12:47 | disposition home or self-care (01) ==
LOC: HO.XRAY 12:46
PROVIDERS: PCP Internal Medicine; Visit Provider Internal Medicine
DX: S09.90XA Unspecified injury of head, initial encounter (principal); R76.11 Nonspecific reaction to tuberculin skin test without active tuberculosis
CPT/HCPCS: 70250; 71046

== ENCOUNTER → 2024-07-24 12:52 | Outpatient (BNV) | payer OTHER, SELFPAY | PROVIDERS: PCP Internal Medicine; Visit Provider Radiology Diagnostic Radiology | DX: S09.90XA Unspecified injury of head, initial encounter (principal) | CPT/HCPCS: 70260; 71046 ==

== ENCOUNTER 2024-09-12 15:59 | Outpatient (AMB) | payer OTHER, SELFPAY ==
--- NOTE | 2024-09-12 16:08 | MHC.PC.OV ---
Vital Signs 09/12/24 16:09 Height 5 ft 3 in Weight 156 lb BMI 27.6 BP 140/90 H Blood Pressure Location Lt brachial Position Sitting Intake Visit Reasons: BP Intake Note: Patient here for a follow up bp Market Garden Worker Required: Yes Market Garden Worker Language: Humane Officer Name: La Howell MD Information Interpreted: non-clinical & clinical Accompanied by: Self / Same As Patient Allergies lansoprazole [Prevacid] Allergy (Intermediate, Verified 09/12/24 16:28) stomach upset pantoprazole Allergy (Intermediate, Verified 09/12/24 16:28) stomach upset lubiprostone [Amitiza] Adverse Reaction (Intermediate, Verified 09/12/24 16:28) GI upset Medication List - Last Reconciled 09/12/24 by La Howell MD amlodipine 5 mg PO DAILY 90 days lisinopril 20 mg PO DAILY 90 days Tobacco use date assessed: 09/12/24 Fall risk assessment: No Falls in past year Last assessed Fall Risk: 09/12/24 Dental Screening Dental Screen Date: 09/12/24 Did you have a dental visit in the last 12 months?: No Did you have a dental problem in the last 6 months where you did not have access to dental care?: No Was dental information given to patient?: Patient has dentist HPI HPI Comments History of Present Illness Details The patient is a 73-year-old female presenting with elevated blood pressure, ear discomfort, and upper respiratory symptoms. She reports that her blood pressure has been slightly elevated but becomes particularly high when she visits the doctor. This elevation is accompanied by a sensation of tension. The patient states she experiences a throbbing sensation in her ear when cleaning, which can be painful and cause dizziness. She identifies this as a persistent issue that has not been associated with any ear discharge or significant hearing loss. Her upper respiratory symptoms include a consistent hoarseness of voice and a slight wheezy sensation but no significant cough or febrile activity is noted. The patient's medical history includes a previous diagnosis of hypertension, currently managed with amlodipine 5 mg and lisinopril 20 mg. There is also a noteworthy allergy to specific medications including lansoprazole, pantoprazole, and lubiprostone. The patient has had a chest X-ray showing a recurrent right-sided scar, which she states is a known and consistent finding with no new lesions depicted in sinus examination images showing clear sinuses with no obvious bone damage or significant bone mineralization issues. [facility] Medical History (Updated 09/12/24 @ 16:38 by La Howell MD) Latent tuberculosis Lung nodule Ankle fracture, right Dyslipidemia Right ankle swelling Essential hypertension Surgical History H/O colonoscopy History of tubal ligation Family History Father Prostate cancer Diabetes Mother No problems noted. Paternal Grandmother Vaginal cancer Paternal Aunt Cervical cancer Son In good health Sister In good health Sister In good health Daughter In good health Daughter In good health Social History Housing: House Alcohol intake: never Patient Tobacco Use Status: Never used Tobacco e-Cigarette/Vaping Use: Never Used Second Hand Smoke Exposure: No service: No Current occupational status: unemployed Cognitive needs: No Hearing needs: No Vision needs: Yes Questionnaire PHQ-9 Over the last 2 weeks, how often have you been bothered by any of the following problems? 1. Little interest or pleasure in doing things: not at all 2. Feeling down, depressed, or hopeless: not at all 3. Trouble falling or staying asleep, or sleeping too much: not at all 4. Feeling tired or having little energy: not at all 5. Poor appetite or overeating: not at all 6. Feeling bad about yourself - or that you are a failure or have let yourself or your family down: not at all 7. Trouble concentrating on things, such as reading the newspaper or watching television: not at all 8. Moving or speaking so slowly that other people could have noticed. Or the opposite - being so fidgety or restless that you have been moving around a lot more than usual: not at all 9. Thoughts that you would be better off or of hurting yourself in some way: not at all Total score: 0 Depression Screening Interpretation: Negative Depression Screening Done: Yes 43243 - PHQ-9 Billing: Yes Source: Developed by Drs. Jarocho Andrade, Cinthya Tadeo, Lanre Forrest and colleagues, with an educational kayla from [employer]. Thrive Questionnaire Date Thrive assessed: 09/12/24 I am a: Patient What is your living situation today?: I have a steady place to live Within the past 12 months, did the food you bought not last and you didn't have the money to get more?: Never true Within the past 12 months, did you worry whether your food would run out before you got money to buy more?: Never true Do you have trouble paying for medicines?: No Do you have trouble getting transportation to medical appointments?: No Do you have trouble paying your heating and electricity bill?: No Do you have trouble taking care of your child, family member or friend?: No Do you have trouble with day-to-day activities such as bathing, preparing meals, shopping, managing finances, etc.?: No Are you currently unemployed and looking for a job?: No Are you interested in more education?: No Please select the resources that you would like help with: None Currently or been in a relationship where the following occur: No concerns reported THRIVE Score: 0 AUDIT C Alcohol Use Questionnaire (AUDIT-C) 1. How often do you have a drink containing alcohol?: Never Total Score: 0 NELDA-7 AMB Questionnaire NELDA-7 Date NELDA - 7 assessed: 09/12/24 Feeling nervous, anxious, or on edge: 0 = Not at all Not being able to stop or control worryin = Not at all Worrying too much about different things: 0 = Not at all Trouble relaxin = Not at all Being so restless that it is hard to sit still: 0 = Not at all Becoming easily annoyed or irritable: 0 = Not at all Feeling afraid as if something awful might happen: 0 = Not at all Total NELDA-7 score (0-4 normal; 5-9 mild; 10-14 moderate; 15-21 severe): 0 Source: Developed by Drs. Jarocho Andrade, Cinthya Tadeo, Lanre Forrest and colleagues, with an educational kayla from [employer]. Review of Systems Const All systems reviewed & are unremarkable except as noted in HPI and below Card Denies chest pain at rest, Denies chest pain with activity, Denies edema, Denies irregular heart rhythm, Denies claudication, Denies dyspnea, Denies dyspnea on exertion, Denies orthopnea, Denies paroxysmal nocturnal dyspnea and Denies slow heart rate Resp Denies cough, Denies dyspnea and Denies dyspnea on exertion GI Denies abdominal pain, Denies change in bowel habits, Denies excessive flatus, Denies nausea and Denies vomiting Denies urinary incontinence, Denies urinary hesitancy and Denies urinary urgency Musc Denies atrophy, Denies deformity and Denies limited range of motion Skin/Breast Denies bleeding lesions, Denies changing lesions and Denies rash Physical exam (Primary Care) Vital Signs: Last Vital Signs BP 140/90 H 09/12/24 16:09 BMI result Body Mass Index 27.6 Tobacco/Smoking Status: Tobacco use Status Tobacco use date assessed 09/12/24 09/12/24 16:14 Patient Tobacco Use Status Never used Tobacco 09/12/24 16:08 e-Cigarette/Vaping Use Never Used 09/12/24 16:08 PHQ-9: PHQ-9 Score PHQ-9: Total score 0 09/12/24 16:32 Depression Screening Interpretation: Negative Thrive Assessment: Date of Thrive Assessment Date Thrive assessed 09/12/24 09/12/24 16:08 Currently or been in a relationship where the following occur: No concerns reported Resp Effort & Inspection: normal respiratory effort Auscultation: clear to auscultation bilaterally Cardio Jugular venous distension: no JVD Rate: regular rate Rhythm: regular rhythm Heart sounds: S1 normal heart sound present and S2 normal heart sound present Extrem General: Yes full ROM Coding Level of Care Code Est Pt Level 4 (04958) Complex EM visit Add On G2211 Diagnoses Ear discomfort H92.09 Skin lesion of scalp L98.9 Essential hypertension I10 Dyslipidemia E78.5 Additional Codes PHQ-9 - 48163 - PHQ-9 Billing: Yes ([id number]) Time Spent (min) 23 Assessment & Plan Assessment & Plan (1) Ear discomfort: Code(s): H92.09 - Otalgia, unspecified ear Category: Medical (2) Skin lesion of scalp: Code(s): L98.9 - Disorder of the skin and subcutaneous tissue, unspecified Category: Medical (3) Essential hypertension: Code(s): I10 - Essential (primary) hypertension Category: Medical (4) Dyslipidemia: Code(s): E78.5 - Hyperlipidemia, unspecified Category: Medical Plan The current plan is to adjust the lisinopril dosage to 30 mg daily to address the elevated hypertension and ensure better management of blood pressure levels. I will refer the patient to dermatology to explore potential treatment options for the ear discomfort and arrange an ENT consultation if symptoms do not resolve. Ear drops will be provided to help alleviate discomfort. I plan to monitor her respiratory symptoms closely during the next follow-up. Patient was informed and verbally consented to the use of an ambient scribe for clinic note documentation during this visit. During this visit, I discussed with the patient the increased dose of lisinopril for managing her hypertension and advised her on the importance of monitoring her blood pressure regularly. I informed her about the dermatology referral for her ear discomfort to explore further treatment options, as well as the potential need for ENT involvement should symptoms persist. Ear drops have been prescribed to provide relief, and she is advised to observe any changes in symptoms. We covered the potential side effects of the increased lisinopril dosage and ensured she understood the importance of immediate reporting of any adverse effects. A follow-up appointment was suggested to assess the effectiveness of these interventions. Orders: Referrals Dermatology Referral L98.9 - Disorder of the skin and subcutaneous tissue, unspecified Ear/Nose/Throat Referral H92.09 - Otalgia, unspecified ear Medications: New fluocinolone acetonide oil 0.01% (DermOtic Oil) 5 drps otic (ears) BID 20 mL 0RF 7 days guaifenesin ER (Mucinex) 600 mg PO BID 10 tabs 0RF 5 days lisinopril 30 mg PO DAILY 90 tabs 1RF 90 days Discontinued lisinopril Discontinued Reason: Patient Completed Course 20 mg PO DAILY 90 days 90 tabs 1RF Patient Instructions: - Increase lisinopril to 30 mg daily as prescribed. - Use prescribed ear drops to alleviate discomfort. - Monitor blood pressure at home and record the readings. - Schedule and attend a referral visit with dermatology. - Seek ENT consultation if symptoms persist or worsen. - Return for follow-up to assess treatment efficacy and adjust as needed. - Report any new or worsening symptoms immediately.
[2024-09-12 16:09] VITALS: BP 140/90; BMI 27.6
--- OUTSIDE RECORDS SUMMARY | 2024-09-12 18:39 | XMS_ITS | Encounter Summary ---
Author Organization [facility] Address [address] [place] [address] Care Team Providers Care Printing Technician Name Role Phone Unavailable Primary Care Provider Unavailabl e Encounter Details Date Type Department Care Team (Late st Contact Info) Description 05/03/2024 Telephone [facility] ADULT DENTAL [address] [place] [address] Margarita Farnsworth DMD Social History Tobacco Use Types Packs/Day Years Used Date Smoking Tobacco: Never Assessed Comments Unknown Sex and Gender Information Value Date Recorded Sex Assigned at Female 04/27/2022 10:40 AM EDT Legal Sex Female 10:40 AM EDT Gender Identity Female 04/27/2022 10:40 AM EDT Sexual Orientation Straight 04/27/2022 10 :40 AM EDT documented as of this encounter Plan of Treatment Upcoming Encounters Date Type Department Care Team (Late st Contact Info) Description 10/11/2024 10:30 AM EDT Office Visit [facility] ADULT DENTAL [address] [place] [address] Rogers-Chadwick, Paris, DDS [address] [place] [address] 02/12/2025 3:00 PM EDT Office Visit [facility] ADULT DENTAL [address] [place] [address] Glenny, Caitlin [address] [place] [address] documented as of this encounter Visit Diagnoses Not on filedocumented in this encounter
--- OUTSIDE RECORDS SUMMARY | 2024-09-12 18:40 | XMS_ITS | Clinical Summary ---
Author Organization [facility] Address [address] [place] [id number] Care Team Providers Care Informatics Consultant Name Role Phone La Mason MD Primary Care Provider [phone] Allergies No known active allergies Medications lisinopril [...] age to complete this topic [place] Care Teams Informatics Consultant Relationship Specialty Start Date End Date La Mason MD [address] [place], [place] PCP - General 07/08/20
--- OUTSIDE RECORDS SUMMARY | 2024-09-12 18:40 | XMS_ITS | Encounter Summary ---
Author Organization [facility] Address [address] [place] [address] Care Team Providers Care Water Chemist Name Role Phone Unavailable Primary Care Provider Unavailabl e Reason for Visit * Reason Onset Date Comments Appointment 05/03/2024 Encounter Details Date Type Department Care Team (Late st Contact Info) Description 05/03/2024 Telephone [facility] ADULT DENTAL [address] [place] [address] Caitlin Murrieta [address] [place] [address] Appointment Social History Tobacco Use Types Packs/Day [...] documented in this encounter Plan of Treatment Upcoming Encounters Date Type Department Care Team (Late st Contact Info) Description 10/11/2024 10:30 AM EDT Office Visit [facility] ADULT DENTAL [address] [place] [address] [place] Shah, DDS [address] [place] [address] 02/12/2025 3:00 PM EDT Office Visit [facility] ADULT DENTAL [address] [place] [address] Caitlin Murrieta [address] [place] [address] documented as of this encounter Visit Diagnoses Not on filedocumented in this encounter
--- OUTSIDE RECORDS SUMMARY | 2024-09-12 18:40 | XMS_ITS | Clinical Summary ---
Author Organization [facility] Address [address] [facility] [address] [place] [address] Care Team Providers Care Machines Technician Name Role Phone Unavailable Primary Care Provider Unavailabl e Allergies No known active allergies Medications lisinopril 20 MG tablet Take by mouth Once per day. Active amLODIPine (Norvasc) 5 MG tablet Take by mouth Once per day. 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; Localized gingival recession from Last 3 Months Immunizations Name Administration Dates Next Due Pfizer Covid-19 Vaccine 12+ Bivalent 06/26/2022 Social History Tobacco Use Types Packs/Day Years Used Date Smoking Tobacco: Never Passive Smoke Exposure: Never Smokeless Tobacco: Never Tobacco Cessation:Counseling Given: Not Answered Alcohol Use Standard Drinks/Week Comments Never 0 (1 standard drink = 0.6 oz pur e alcohol) Comments Unknown Sex and Gender Information Value Date Recorded Sex Assigned at Female 04/27/2022 10:40 AM EDT Legal Sex Female 10:40 AM EDT Gender Identity Female 04/27/2022 10:40 AM EDT Sexual Orientation Straight 04/27/2022 10 :40 AM EDT Last Filed Vital Signs Vital Sign Reading Time Taken Comments Blood Pressure 138/82 08/08/2024 2:13 PM EST Pulse - - Temperature - - Respiratory Rate - - Oxygen Saturation - - Inhaled Oxygen Concentration - - Weight - - Height - - Body Mass Index - - Plan of Treatment Upcoming Encounters Date Type Department Care Team (Late st Contact Info) Description 10/11/2024 10:30 AM EDT Office Visit [facility] ADULT DENTAL [address] [place] [address] RogersNavneetChadwickParis santos, DDS [address] [place] [address] 02/12/2025 3:00 PM EDT Office Visit [facility] ADULT DENTAL [address] [place] [address] Caitlin Murrieta [address] [place] [address] Health Maintenance Due Date Last Done Comments CT Colonography 1951 Colonoscopy 1951 Colorectal Cancer Screening 1951 Dental Prophylaxis 1951 Depression Screening 1951 FIT DNA/Cologuard 1951 FIT 1951 FOBT 1951 Lipid Panel 1951 SDOH Screening 1951 Sigmoidoscopy 1951 Alcohol/Substance Use Screening 1963 Hepatitis C Screening 10/19/1969 Mammogram 1991 Zoster Vaccines (1 of 2) 10/19/2001 Pneumococcal Vaccine: 50+ Years (2 of 2 - PCV) 03/15/2020 03/15/2019 COVID-19 Vaccine ( season) 2024 06/26/2022, 09/26/2021, 01/15/2021, Additional history exists Influenza Vaccine (#1) 2024 Dental Oral Exam 02/06/2025 08/08/2024 Tobacco Screening 08/08/2025 08/08/2024 Dental X-Ray: Bitewings 08/09/2025 08/08/2024 RSV Patients and Patients Aged 60 years or older (1 - 1-dose 75+ series) 10/19/2026 Dental X-Ray: Full Mouth 08/09/2027 08/08/2024 DTaP/Tdap/Td Vaccines (2 - Td or Tdap) [...] on patient's age to complete this topic Procedures Procedure Name Priority Date/Time Associated Diagnosis Comments INTRAORAL - COMPLETE SERIES OF RADIOGRAPHIC IMAGES Routine 08/08/2024 2:00 PM EST Encounter for dental examination Dental plaque Fractured dental zoroastrianism with loss of material CASE PRESENTATION, DETAILED AND EXTENSIVE TREATMENT PLANNING Routine 08/08/2024 2:00 PM EST Encounter for dental examination Dental plaque Fractured dental zoroastrianism with loss of material COMPREHENSIVE ORAL EVALUATION - NEW OR ESTABLISHED PATIENT Routine 08/08/2024 2:00 PM EST Encounter for dental examination Dental plaque Fractured dental zoroastrianism with loss of material 32 EXTRACTION Routine 08/08/2024 12:00 AM EST 31 EXTRACTION Routine 08/08/2024 12:00 AM EST 30 EXTRACTION Routine 08/08/2024 12:00 AM EST 29 EXTRACTION Routine 08/08/2024 12:00 AM EST 11 EXTRACTION Routine 08/08/2024 12:00 AM EST 10 EXTRACTION Routine 08/08/2024 12:00 AM EST 9 EXTRACTION Routine 08/08/2024 12:00 AM EST 8 EXTRACTION Routine 08/08/2024 12:00 AM EST 5 EXTRACTION Routine 08/08/2024 12:00 AM EST 2 EXTRACTION Routine 08/08/2024 12:00 AM EST 14 EXTRACTION Routine 08/08/2024 12:00 AM EST 19 EXTRACTION Routine 08/08/2024 12:00 AM EST 18 EXTRACTION Routine 08/08/2024 12:00 AM EST 17 EXTRACTION Routine 08/08/2024 12:00 AM EST from Last 3 Months [facility]
== END 2024-09-12 16:38 | disposition home or self-care (01) ==
LOC: HO.HMCH 16:00
PROVIDERS: PCP Internal Medicine; Visit Provider Internal Medicine
DX: H92.09 Otalgia, unspecified ear (principal); L98.9 Disorder of the skin and subcutaneous tissue, unspecified; I10 Essential (primary) hypertension; E78.5 Hyperlipidemia, unspecified

== ENCOUNTER → 2024-09-12 15:59 | Outpatient (BNVA) | payer OTHER, SELFPAY | PROVIDERS: PCP Internal Medicine; Visit Provider Internal Medicine | DX: L98.9 Disorder of the skin and subcutaneous tissue, unspecified (principal); E78.5 Hyperlipidemia, unspecified; I10 Essential (primary) hypertension; H92.09 Otalgia, unspecified ear | CPT/HCPCS: 96127; 99212 ==

== ENCOUNTER 2024-09-17 00:40 | Emergency (ER) | payer OTHER, SELFPAY ==
--- NOTE | ~2024-09-17 | CT_ITS ---
CLINICAL HISTORY: Left flank pain CT abdomen and pelvis without contrast Comparison: None Findings: Small hiatal hernia. Atelectasis. Cardiomegaly without significant pericardial effusion. Coronary artery calcifications. Hepatomegaly with steatosis. Contracted gallbladder. Nonobstructive 2 mm calculus in the left lower pole kidney. Posterior right upper pole 3.3 cm heterogeneous fatty attenuating lesion in the kidney, suggestive of the AML. Large colonic stool burden. No bowel obstruction. Midline abdominal wall eventration. Scattered colonic diverticulosis without diverticulitis or colitis. Normal appendix. Mildly distended bladder. Osteopenia with diffuse multilevel spondylosis. IMPRESSION: Nonobstructive 2 mm calculus in the left lower pole kidney. Additional findings as described. This document has been electronically signed by: Tahir Cifuentes MD on 09/17/2024 02:56:34
[2024-09-17 00:50] VITALS: BP 164/88; PULSE 80; O2SAT 100
--- NOTE | 2024-09-17 00:52 | ED_ITS ---
HPI - Abdominal Pain General Chief Complaint: Abdominal Pain Stated Complaint: L Flank pain 10/10 started a week ago got worse Time Seen by Provider: 09/17/24 00:47 Source: patient Mode of arrival: ambulatory Limitations: no limitations History of Present Illness ED Provider: HPI narrative: Patient is 73 years old with history of hypertension right kidney angio lipoma is stable comes here for left-sided flank pain started about 1 week off and got worse in last 24 hours associated with nausea no vomiting no fever no chills no urinary complaint no bowel problems does have occasional cough no shortness no rash no hematuria Related Data Previous Rx's ?Medication ?Instructions ?Recorded amlodipine 5 mg tablet 5 mg PO DAILY 90 days #90 tabs 07/31/24 fluocinolone acetonide oil 0.01 % 5 drp otic (ears) BID 7 days #20 mL 09/12/24 ear drops (DermOtic Oil) guaifenesin 600 mg tablet, 600 mg PO BID 5 days #10 tabs 09/12/24 extended release 12 hr (Mucinex) lisinopril 30 mg tablet 30 mg PO DAILY 90 days #90 tabs 09/12/24 Allergies Allergy/AdvReac Type Severity Reaction Status Date / Time No Known Allergies Allergy Verified 09/17/24 01:00 Review of Systems Review of Systems Yes all other systems are reviewed and are negative PMFSH Past Medical History Medical History Latent tuberculosis Lung nodule Ankle fracture, right Dyslipidemia Right ankle swelling Essential hypertension Surgical History H/O colonoscopy History of tubal ligation Family History Family History Father Prostate cancer Diabetes Mother No problems noted. Paternal Grandmother Vaginal cancer Paternal Aunt Cervical cancer Son In good health Sister In good health Sister In good health Daughter In good health Daughter In good health Social History Social History Housing: House Alcohol intake: never Patient Tobacco Use Status: Never used Tobacco Smoked in Last 30 Days: No e-Cigarette/Vaping Use: Never Used Second Hand Smoke Exposure: No Use of substances other than those prescribed or required for medical reasons: No Advance Directives: No Advance Directives Information Provided: Yes service: No Current occupational status: unemployed Cognitive needs: No Hearing needs: No Vision needs: Yes Physical Exam ED Vital Signs: Vital Signs - 24 hr 09/17/24 00:56 09/17/24 02:54 Temperature 97.9 F 97.6 F Pulse Rate 75 75 Respiratory Rate 19 17 Blood Pressure 173/89 H 147/90 H Pulse Oximetry 97 87 L Oxygen Delivery Method Room Air Room Air BMI result Body Mass Index 29.6 Appearance: Alert. Oriented X3. No acute distress. Eyes: No pallor or icterus ENT: Pharynx normal. Oral Mucosa moist Neck: Normal inspection. Neck supple. CVS: Normal heart rate and rhythm. Pulses normal. Respiratory: No respiratory distress. Equal air entry bilateral, no wheezing/rales/rhonchi Abdomen: Soft and nontender. Bowel sounds are present, no mass palpable, left CVA tenderness + Skin: Skin warm and dry. Normal skin color. Normal skin turgor. Extremities: No lower extremity edema. No calf tenderness Neuro: Oriented X 3. No motor deficit. No sensory deficit.No cerebellar signs , cranial nerves II-XII intact Medical Decision Making Medical Decision Making MDM Narrative: Patient nonspecific left upper abdomen and flank pain CT scan negative for acute urine is also negative for infection etiology not clear likely related to the muscular/stomach issues without any medication patient is feeling much better will discharge patient home Differential Diagnosis Differential Diagnoses: The differential diagnosis associated with the presentation includes Kidney stone/UTI Lab Data [facility] Lab Attestation statement: I reviewed the patient's lab results. 09/17/24 01:07 09/17/24 01:32 Labs: Lab Results 09/17/24 09/17/24 09/17/24 Range/Units 01:07 01:32 02:00 WBC 7.0 (4.8-10.8) X10*3/uL RBC 4.17 L (4.20-5.50) X10*6/uL Hgb 12.9 (12.0-16.0) g/dl Hct 37.3 (37.0-47.0) % MCV 89.4 (80.0-98.0) fL MCH 30.9 (27.0-33.0) pg MCHC 34.6 (31.0-35.0) g/dl RDW 12.0 (11.0-16.0) % Plt Count 311 (160-400) X10*3/uL MPV 9.3 L (9.4-12.3) fL Immature Gran % (Auto) 0.1 (0.0-0.4) % Neut % (Auto) 51.0 (45-73) % Lymph % (Auto) 36.1 (20-40) % Jerome % (Auto) 9.2 (2-11) % Eos % (Auto) 3.0 (0-4) % Baso % (Auto) 0.6 (0-2) % Lymph # (Auto) 2.5 (1.2-4.9) X10*3/uL Jerome # (Auto) 0.7 (0.1-1.2) X10*3/uL Eos # (Auto) 0.2 (0.0-0.4) X10*3/uL Baso # (Auto) 0.0 (0.0-0.2) X10*3/uL Abs Immat Gran (auto) 0.01 (0.00-0.03) X10*3/uL Absolute Neuts (auto) 3.6 (2.0-8.3) x10*3/uL Absolute Nucleated RBC 0.000 (0.0-0.012) X10*3/uL Nucleated RBC % (auto) 0.0 (0.0-0.2) /100WBC Sodium 141 (135-145) mmol/L Potassium 3.8 (3.3-5.1) mmol/L Chloride 108 (96-108) mmol/L Carbon Dioxide 26 (22-29) mmol/L Anion Gap 11 L (12-20) BUN 17 H (9-16) mg/dL Creatinine 0.80 (0.5-1.4) mg/dL Estim Creat Clear Calc 59.6 Estimated GFR > 60 Random Glucose 102 (60-115) mg/dL Calcium 9.9 (8.4-10.2) mg/dL Total Bilirubin 0.2 (0.0-1.0) mg/dL AST 27 (5-31) U/L ALT 32 H (0-31) U/L Alkaline Phosphatase 82 (39-117) U/L Total Protein 7.4 (6.5-8.0) g/dL Albumin 3.9 (3.5-5.0) g/dL Lipase 37 (8-78) U/L Urine Color Yellow Urine Appearance Clear Urine pH 7.5 (5.0-9.0) Ur Specific Eunice <= 1.005 (1.005-1.025) Urine Protein Negative (Neg-Trace) mg/dL Urine Glucose (UA) Negative (Negative) mg/dL Urine Ketones Negative (Negative) mg/dL Urine Blood Negative (Negative) Urine Nitrite Negative (Negative) Ur Leukocyte Esterase Negative (Negative) Radiology Impression Discussion of test interpretation with radiology: I have reviewed the radiologist's reading. Radiologist Impression: IMPRESSION: Nonobstructive 2 mm calculus in the left lower pole kidney. Additional findings as described. This document has been electronically signed by: Tahir Cifuentes MD on 09/17/2024 02:56:34 Medications Administered Discontinued Medications Generic Name Dose Route Start Last Admin Trade Name Freq PRN Reason Stop Dose Admin Sodium Chloride 1,000 mls @ 999 mls/hr 09/17/24 00:56 09/17/24 02:48 Ns IV 09/17/24 01:56 Infused .Q1H1M ONE Infusion Discharge Plan Discharge Clinical Impression: Abdominal pain Patient Disposition: Home, Self-Care Instructions: Abdominal Pain (ED) Additional Instructions: Cause of your abdominal pain is not clear Your CT scan is negative for acute Drink plenty of fluids Follow with your PCP as needed Prescriptions: No Action amlodipine 5 mg tablet 5 mg PO DAILY 90 Days Qty: 90 1RF guaifenesin [Mucinex] 600 mg tablet extended release 12hr 600 mg PO BID 5 Days Qty: 10 0RF fluocinolone acetonide oil [DermOtic Oil] 0.01 % drops 5 drp otic (ears) BID 7 Days Qty: 20 0RF lisinopril 30 mg tablet 30 mg PO DAILY 90 Days Qty: 90 1RF Print Language: Romanian
[2024-09-17 00:56] VITALS: BP 173/89; PULSE 75; RESP 19; TEMP 36.6; O2SAT 97; BMI 29.6
[2024-09-17] MEDS: 0.9 % Sodium Chloride 1,000 ML 999 ML IV (01:08)
[2024-09-17 01:14] LABS: MANUAL DIFF FLAG NO
[2024-09-17 01:15] LABS: Basophils Percent Auto 0.6 % (0-2); Eosinophils Absolute Auto 0.2 X10*3/uL (0.0-0.4); Hematocrit 37.3 % (37.0-47.0); Hemoglobin 12.9 g/dl (12.0-16.0); Imm Gran Abs Auto 0.01 X10*3/uL (0.00-0.03); Imm Gran Pct Auto 0.1 % (0.0-0.4); Lymphocytes Absolute Auto 2.5 X10*3/uL (1.2-4.9); Lymphocytes Percent Auto 36.1 % (20-40); Mean Corpuscular HGB Conc 34.6 g/dl (31.0-35.0); Mean Corpuscular Hemoglobin 30.9 pg (27.0-33.0); Mean Corpuscular Volume 89.4 fL (80.0-98.0); Mean Platelet Volume 9.3 fL (9.4-12.3); Monocytes Absolute Auto 0.7 X10*3/uL (0.1-1.2); Monocytes Percent Auto 9.2 % (2-11); Neutrophils Absolute Auto 3.6 x10*3/uL (2.0-8.3); Platelet Count 311 X10*3/uL (160-400); Red Blood Count 4.17 X10*6/uL (4.20-5.50)
[2024-09-17 02:07] LABS: Appearance Urine Clear; Color Urine Yellow; Glucose Urine UA Negative (Negative); Leukocyte Esterase Urine Negative (Negative); Nitrite Urine Negative (Negative); PH 7.5 (5.0-9.0); Specific Gravity - Urine <= 1.005 (1.005-1.025); Urine Blood Negative (Negative); Urine Ketones Negative (Negative); Urine Protein Negative (Neg-Trace)
[2024-09-17 02:10] LABS: Alanine Aminotransferase 32 U/L (0-31); Albumin Level 3.9 g/dL (3.5-5.0); Anion Gap 11 (12-20); Aspartate Amino Transferase 27 U/L (5-31); Bilirubin Total 0.2 mg/dL (0.0-1.0); Blood Urea Nitrogen 17 mg/dL (9-16); Calcium 9.9 mg/dL (8.4-10.2); Carbon Dioxide 26 mmol/L (22-29); Chloride 108 mmol/L (96-108); Creatinine Clr Calc Pharmacy 59.6; Estimated Glomerular Filt Rate > 60; Glucose Random 102 mg/dL (60-115); Lipase 37 U/L (8-78); Potassium 3.8 mmol/L (3.3-5.1); Sodium 141 mmol/L (135-145); Total Protein 7.4 g/dL (6.5-8.0)
[2024-09-17 02:45] LABS: Alkaline Phosphatase 82 U/L (39-117)
[2024-09-17 02:54] VITALS: BP 147/90; PULSE 75; RESP 17; TEMP 36.4; O2SAT 87
[2024-09-17 04:56] VITALS: BP 138/78; PULSE 72; RESP 17; TEMP 36.6; O2SAT 97
== END 2024-09-17 04:58 | disposition home or self-care (01) ==
PROVIDERS: Emergency Provider Internal Medicine; PCP Internal Medicine
DX: R10.9 Unspecified abdominal pain (principal); N20.0 Calculus of kidney; R11.0 Nausea; I10 Essential (primary) hypertension
CPT/HCPCS: 36415; 74176; 80053; 81003; 83690; 85025; 96360; 96361; 99284

== ENCOUNTER → 2024-09-17 00:56 | Outpatient (BNV) | payer OTHER, SELFPAY | PROVIDERS: Emergency Provider Internal Medicine; PCP Internal Medicine; Visit Provider Radiology Diagnostic Radiology | DX: N20.0 Calculus of kidney (principal) | CPT/HCPCS: 74176 ==

== ENCOUNTER 2025-04-05 15:23 | Outpatient (AMB) | payer OTHER, SELFPAY ==
[2025-04-05 15:34] VITALS: BP 138/80; PULSE 95; O2SAT 96; BMI 27.5
--- NOTE | 2025-04-05 15:34 | MHC.PC.OV ---
Vital Signs 04/05/25 15:34 Height 5 ft 2 in Weight 150 lb 6 oz BMI 27.5 BP 138/80 Blood Pressure Location Lt brachial Position Sitting Pulse 95 Pulse Source Pulse Oximeter Pulse Oximetry (%) 96 Oxygen Delivery Method Room Air Intake Visit Reasons: annual exam Material Damage Adjuster Required: No Accompanied by: Self / Same As Patient Allergies No Known Allergies Allergy (Verified 04/05/25 16:26) Medication List - Last Reconciled 04/05/25 by La Howell MD amlodipine 5 mg PO DAILY 90 days fluocinolone acetonide oil 0.01% (DermOtic Oil) 5 drps otic (ears) BID 7 days guaifenesin ER (Mucinex) 600 mg PO BID 5 days lisinopril 30 mg PO DAILY 90 days Tobacco use date assessed: 04/05/25 Fall risk assessment: No Falls in past year Last assessed Fall Risk: 04/05/25 Dental Screening Dental Screen Date: 04/05/25 Did you have a dental visit in the last 12 months?: Yes Did you have a dental problem in the last 6 months where you did not have access to dental care?: No Was dental information given to patient?: Patient has dentist HPI HPI Comments History of Present Illness Details The patient is a 74-year-old female presenting with a focus on preventative care measures. She has a history of osteopenia, identified during a bone density scan in 2023, and is currently taking calcium with vitamin D supplements. The patient also has a history of coronary artery disease, though specific details regarding onset and management were not discussed in this visit. Hypertension is managed with amlodipine 5 mg and lisinopril 30 mg, with blood pressure reported as well-controlled. In terms of preventative care, the patient is due for a pneumococcal vaccination, as it has been more than five years since the last dose. She is also scheduled for a mammography on May 22 of this year and had a colonoscopy on July 12, 2023, with the next one due in 2026. Additionally, she is due for a bone density scan next year. [facility] Medical History Latent tuberculosis Lung nodule Ankle fracture, right Dyslipidemia Right ankle swelling Essential hypertension Surgical History H/O colonoscopy History of tubal ligation Family History Father Prostate cancer Diabetes Mother No problems noted. Paternal Grandmother Vaginal cancer Paternal Aunt Cervical cancer Son In good health Sister In good health Sister In good health Daughter In good health Daughter In good health Social History Housing: House Alcohol intake: never Patient Tobacco Use Status: Never used Tobacco e-Cigarette/Vaping Use: Never Used Second Hand Smoke Exposure: No service: No Current occupational status: unemployed Cognitive needs: No Hearing needs: No Vision needs: Yes Questionnaire PHQ-9 Over the last 2 weeks, how often have you been bothered by any of the following problems? 1. Little interest or pleasure in doing things: not at all 2. Feeling down, depressed, or hopeless: not at all 3. Trouble falling or staying asleep, or sleeping too much: not at all 4. Feeling tired or having little energy: not at all 5. Poor appetite or overeating: not at all 6. Feeling bad about yourself - or that you are a failure or have let yourself or your family down: not at all 7. Trouble concentrating on things, such as reading the newspaper or watching television: not at all 8. Moving or speaking so slowly that other people could have noticed. Or the opposite - being so fidgety or restless that you have been moving around a lot more than usual: not at all 9. Thoughts that you would be better off or of hurting yourself in some way: not at all Total score: 0 Depression Screening Interpretation: Negative Depression Screening Done: Yes 34147 - PHQ-9 Billing: Yes Source: Developed by Drs. Jarocho Andrade, Cinthya Tadeo, Lanre Forrest and colleagues, with an educational kayla from [employer]. Thrive Questionnaire Date Thrive assessed: 04/03/25 I am a: Patient What is your living situation today?: I have a steady place to live Within the past 12 months, did the food you bought not last and you didn't have the money to get more?: Never true Within the past 12 months, did you worry whether your food would run out before you got money to buy more?: Never true Do you have trouble paying for medicines?: No Do you have trouble getting transportation to medical appointments?: No Do you have trouble paying your heating and electricity bill?: No Do you have trouble taking care of your child, family member or friend?: No Do you have trouble with day-to-day activities such as bathing, preparing meals, shopping, managing finances, etc.?: No Are you currently unemployed and looking for a job?: No Are you interested in more education?: No Please select the resources that you would like help with: None Currently or been in a relationship where the following occur: I choose not to answer THRIVE Score: 0 AUDIT C Alcohol Use Questionnaire (AUDIT-C) 1. How often do you have a drink containing alcohol?: Never 3. How often do you have six or more drinks on one occasion?: Never Total Score: 0 Score Reviewed/Action Taken: No NELDA-7 AMB Questionnaire NELDA-7 Date NELDA - 7 assessed: 09/12/24 Feeling nervous, anxious, or on edge: 0 = Not at all Not being able to stop or control worryin = Several days Worrying too much about different things: 0 = Not at all Trouble relaxin = Not at all Being so restless that it is hard to sit still: 0 = Not at all Becoming easily annoyed or irritable: 0 = Not at all Feeling afraid as if something awful might happen: 0 = Not at all Total NELDA-7 score (0-4 normal; 5-9 mild; 10-14 moderate; 15-21 severe): 1 Source: Developed by Drs. Jarocho Andrade, Cinthya Tadeo, Lanre Forrest and colleagues, with an educational kayla from [employer]. NELDA-7 Assessment Billing NELDA-7 Assessment Tool: NELDA-7 Assessment 01075 Review of Systems Const All systems reviewed & are unremarkable except as noted in HPI and below Card Denies chest pain at rest, Denies chest pain with activity, Denies edema, Denies irregular heart rhythm, Denies claudication, Denies dyspnea, Denies dyspnea on exertion, Denies orthopnea, Denies paroxysmal nocturnal dyspnea and Denies slow heart rate Resp Denies cough, Denies dyspnea and Denies dyspnea on exertion GI Denies abdominal pain, Denies change in bowel habits, Denies excessive flatus, Denies nausea and Denies vomiting Denies urinary incontinence, Denies urinary hesitancy and Denies urinary urgency Musc Denies abnormal gait, Denies atrophy, Denies deformity and Denies limited range of motion Skin/Breast Denies bleeding lesions, Denies changing lesions and Denies rash Neuro Denies abnormal gait and Denies lack of coordination Physical exam (Primary Care) Vital Signs: Last Vital Signs Pulse 95 04/05/25 15:34 BP 138/80 04/05/25 15:34 Pulse Ox 96 04/05/25 15:34 Oxygen Delivery Method Room Air 04/05/25 15:34 BMI result Body Mass Index 27.5 Tobacco/Smoking Status: Tobacco use Status Tobacco use date assessed 04/05/25 04/05/25 15:36 Patient Tobacco Use Status Never used Tobacco 04/05/25 15:36 e-Cigarette/Vaping Use Never Used 04/05/25 15:36 PHQ-9: PHQ-9 Score PHQ-9: Total score 0 04/05/25 16:44 Depression Screening Interpretation: Negative Thrive Assessment: Date of Thrive Assessment Date Thrive assessed 04/03/25 04/05/25 15:36 Currently or been in a relationship where the following occur: I choose not to answer Const Orientation/consciousness: patient oriented x3 HENMT Head: Yes normal to inspection, Yes normocephalic and Yes atraumatic Ears: external ears normal Eyes General: appearance normal, both eyes and all related structures Eyelids: Yes eyelids normal Conjunctivae: conjunctivae normal Neck Neck: Yes normal visual inspection and Yes supple Resp Effort & Inspection: normal respiratory effort Auscultation: clear to auscultation bilaterally Cardio Jugular venous distension: no JVD Rate: regular rate Rhythm: regular rhythm Heart sounds: S1 normal heart sound present and S2 normal heart sound present GI Inspection: Yes normal to inspection Palpation (GI): Soft to palpation and nontender Auscultation: normal bowel sounds Skin General skin exam: no rashes or lesions noted Neuro General: patient oriented x3 and no focal motor deficits Extrem General: Yes full ROM Psych Appearance: grossly normal Immunizations pneumoc 20-don conj-dip cr(PF) 0.5 mL IM syringe Performing Provider: La Howell MD Performing Location: [facility] [place] [facility] Administered by: Jennifer Bhakta CMA on 04/05/25 16:42 Dose Route Admin Location Dispensed Lot Number Expiration Date NDC Publicist 0.5 mL IM Left Deltoid 0.5 mL [id number] 02/26/26 8261-1462-98 [email or web address] Total Dispensed Waste 0.5 mL 0 % VIS Given Date VIS Provided VIS Publication Date 04/05/25 Single Vaccine 24 Eligibility Eligibility Date Funding Source Not [facility] Eligible 04/05/25 Private Coding Level of Care Code Est Pt Prev Care >65y(77610) Diagnoses Physical exam Z00.00 Additional Codes NELDA-7 Assessment Billing - NELDA-7 Assessment Tool: NELDA-7 Assessment 38385 ([id number]) PHQ-9 - 26436 - PHQ-9 Billing: Yes ([id number]) Time Spent (min) 30 Assessment & Plan Assessment & Plan (1) Physical exam: Code(s): Z00.00 - Encounter for general adult medical examination without abnormal findings Category: Medical Plan Plan Patient was informed and verbally consented to the use of an ambient scribe for clinic note documentation during this visit. 1. Preventative Care: Pneumococcal Vaccination The patient is due for a pneumococcal vaccination, as it has been more than five years since the last dose. 2. Preventative Care: Mammography The patient is scheduled for a mammography on May 22 of this year. 3. Preventative Care: Colonoscopy The patient had a colonoscopy on July 12, 2023, with the next one due in 2026. 4. Preventative Care: Bone Density Scan The patient is due for a bone density scan next year. Orders: Orders Pneumococcal 20 Immunization State Supplied Today Z23 - Encounter for immunization Lipid Panel Today E78.5 - Hyperlipidemia, unspecified Comprehensive [facility]. Panel Fast Today I10 - Essential (primary) hypertension
== END 2025-04-05 16:46 | disposition home or self-care (01) ==
LOC: HO.HMCH 15:24
PROVIDERS: PCP Internal Medicine; Visit Provider Internal Medicine
DX: Z00.00 Encounter for general adult medical examination without abnormal findings (principal); Z23 Encounter for immunization

== ENCOUNTER → 2025-04-05 15:23 | Outpatient (BNVA) | payer OTHER, SELFPAY | PROVIDERS: PCP Internal Medicine; Visit Provider Internal Medicine | DX: Z00.00 Encounter for general adult medical examination without abnormal findings (principal); M85.80 Other specified disorders of bone density and structure, unspecified site; I25.10 Atherosclerotic heart disease of native coronary artery without angina pectoris; I10 Essential (primary) hypertension; E78.5 Hyperlipidemia, unspecified; Z23 Encounter for immunization; Z79.899 Other long term (current) drug therapy | CPT/HCPCS: 90471; 90677; 96127; 99397 ==

== ENCOUNTER 2025-04-25 07:17 | Outpatient (REF) | payer OTHER, SELFPAY ==
--- OUTSIDE RECORDS SUMMARY | 2025-04-25 07:21 | XMS_ITS | Encounter Summary ---
Author Organization [employer] Address [address] [place] [address] Care Team Providers Care Tree And Shrub Technician Name Role Phone Unavailable Primary Care Provider Unavailabl e Reason for Visit * Reason Onset Date Comments Appointment 05/03/2024 Encounter Details Date Type Department Care Team (Late st Contact Info) Description 05/03/2024 Telephone [facility] [address] [place] [address] GlennyCaitlin martin [address] [place] [address] Appointment Social History Tobacco Use Types Packs/Day [...]
--- OUTSIDE RECORDS SUMMARY | 2025-04-25 07:21 | XMS_ITS | Clinical Summary ---
Author Organization [facility] Facility Address [address] [place] [id number] Care Team Providers Care Senior Architect/Design Manager Name Role Phone La Mason MD Primary Care Provider Allergies No known active allergies Medications lisinopril [...] Colorectal Cancer Screening: Sigmoidoscopy 10/19/2000 Pneumococcal Vaccine: 50+ Ye ars (1 of 1 - PCV) 10/19/2001 Influenza Vaccine (#1) 2025 Hepatitis B Vaccine Aged Out No longe r eligible based on patient's age to complete this topic [place] Care Teams Senior Architect/Design Manager Relationship Specialty Start Date End Date La Mason MD [address] [place], [place] PCP - General 07/08/20
--- OUTSIDE RECORDS SUMMARY | 2025-04-25 07:21 | XMS_ITS | Clinical Summary ---
Author Organization [employer] Address [address] [facility] [address] [place] [address] Care Team Providers Care Compressor Station Operator Name Role Phone Unavailable Primary Care Provider Unavailabl e Allergies No known active allergies Medications lisinopril 20 MG tablet Take by mouth Once per day. Active amLODIPine (Norvasc) 5 MG tablet Take by mouth Once per day. Active lisinopril 30 MG tablet TOME 1 TABLETA POR V A ORAL TODOS LOS D 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 Essential hypertension 07/18/2021 Encounters Date Type Department Care Team Description 03/15/2025 10:30 AM EDT Office Visit [facility] [address] [place] [address] Rogers-Chadwick, [place], DDS Tooth sensitivity to cold (Primary Dx); Localized gingival recession 02/15/2025 9:30 AM EDT Office Visit [facility] [address] [place] [id number] Rogers-Chadwick, [place], DDS Teeth missing (Primary Dx) 02/06/2025 2:00 PM EDT Office Visit [facility] [address] [place] [address] Rogers-Chadwick, [place], DDS Teeth missing (Primary Dx) 01/29/2025 3:00 PM EDT Office Visit [facility] [address] [place] [id number] Rogers-Chadwick, Paris, DDS Teeth missing (Primary Dx) from Last 3 Months Immunizations Immunization Administration Dates Next Due Pfizer Covid-19 Vaccine [...] Sign Reading Time Taken Comments Blood Pressure 132/80 03/15/2025 10:31 AM EDT Pulse 70 02/06/2025 2:25 PM EDT Temperature - - Respiratory Rate - - Oxygen Saturation - - Inhaled Oxygen Concentration - - Weight - - Height - - Body Mass Index - - Plan of Treatment Health Maintenance Due Date [...] (2 of 2 - PCV) 03/15/2020 03/15/2019 Dental Oral Exam 02/06/2025 08/08/2024 COVID-19 Vaccine (2024- season) 2025 06/26/2022, 09/26/2021, 01/15/2021, Additional history exists Influenza Vaccine (#1) 2025 Dental X-Ray: Bitewings 08/09/2025 08/08/2024 Tobacco Screening 03/15/2026 03/15/2025 RSV Patients and Patients Aged 60 years [...] patient's age to complete this topic Meningococcal B Vaccine Aged Out No l onger eligible based on patient's age to complete [...] Procedure Name Priority Date/Time Associated Diagnosis Comments CASE PRESENTATION, DETAILED AND EXTENSIVE TREATMENT PLANNING Routine 03/15/2025 10:30 AM EDT Tooth sensitivity to cold Localized gingival recession 3 B(V) RESIN-BASED COMPOSITE - 1 SURF, POSTERIOR Routine 03/15/2025 10:30 AM EDT Tooth sensitivity to cold Localized gingival recession 28 BB(V) RESIN-BASED COMPOSITE - 1 SURF, POSTERIOR Routine 03/15/2025 10:30 AM EDT Tooth sensitivity to cold Localized gingival recession CASE PRESENTATION, DETAILED AND EXTENSIVE TREATMENT PLANNING Routine 02/15/2025 9:30 AM EDT Teeth missing 2,5,8,9,10,11,14 MAXILLARY PARTIAL DENTURE - RESIN BASE (INCLUDING, RETENTIVE/CLASPING MATERIALS, RESTS, AND TEETH) Routine 02/15/2025 9:30 AM EDT Teeth missing WAX TRY IN Routine 02/06/2025 2:00 PM EDT Teeth missing DENTURE IMPRESSION Routine 01/29/2025 3: 00 PM EDT Teeth missing INTRAORAL - COMPLETE SERIES OF RADIOGRAPHIC IMAGES Routine 08/08/2024 2:00 PM EST Encounter for dental examination Dental plaque Fractured dental jehovah's witness with loss of material COMPREHENSIVE ORAL EVALUATION - NEW OR ESTABLISHED PATIENT Routine 08/08/2024 2:00 PM EST Encounter for dental examination Dental plaque Fractured dental jehovah's witness with loss of material from Last 3 Months or Most Recently Relevant to Health Maintenance Insurance [facility]
--- OUTSIDE RECORDS SUMMARY | 2025-04-25 07:21 | XMS_ITS | Encounter Summary ---
Author Organization [employer] Address [address] [place] [address] Care Team Providers Care Sorter/Assay Tech Name Role Phone Unavailable Primary Care Provider Unavailabl e Encounter Details Date Type Department Care Team (Late st Contact Info) Description 05/03/2024 Telephone [facility] [address] [place] [address] Margarita Farnsworth DMD Social History Tobacco Use [...]
[2025-04-25 08:59] LABS: Alanine Aminotransferase 35 U/L (0-31); Albumin Level 4.5 g/dL (3.5-5.0); Alkaline Phosphatase 83 U/L (39-117); Anion Gap 11 (12-20); Aspartate Amino Transferase 29 U/L (5-31); Blood Urea Nitrogen 16 mg/dL (9-16); Calcium 10.3 mg/dL (8.4-10.2); Carbon Dioxide 31 mmol/L (22-29); Chloride 105 mmol/L (96-108); Cholesterol 247 mg/dL (<200); Estimated Glomerular Filt Rate > 60; HDL Cholesterol 67 mg/dL (>40); Potassium 4.0 mmol/L (3.3-5.1); Sodium 143 mmol/L (135-145); Total Protein 7.7 g/dL (6.5-8.0); Triglycerides 131 mg/dL (<150)
== END 2025-04-25 07:18 | disposition home or self-care (01) ==
LOC: HO.LAB 07:17
PROVIDERS: PCP Internal Medicine; Visit Provider Internal Medicine
DX: I10 Essential (primary) hypertension (principal); E78.5 Hyperlipidemia, unspecified
CPT/HCPCS: 36415; 80053; 80061

== ENCOUNTER → 2025-05-22 11:30 | Outpatient (BNV) | payer OTHER, SELFPAY | PROVIDERS: PCP Internal Medicine; Visit Provider Radiology Body Imaging | DX: Z12.31 Encounter for screening mammogram for malignant neoplasm of breast (principal) | CPT/HCPCS: 77063; 77067 ==

== ENCOUNTER 2025-05-22 11:34 | Outpatient (REF) | payer OTHER, SELFPAY ==
--- NOTE | ~2025-05-22 | MM_ITS ---
EXAMINATION: MM SCREENING DIGITAL BREAST TOMOSYNTHESIS, BILATERAL CLINICAL INFORMATION: Screening. Asymptomatic. COMPARISON: Comparison made to multiple prior, most recent May 19, 2024, and most remote April 16, 2017. TECHNIQUE: Digital breast tomosynthesis is performed in mediolateral oblique and craniocaudal views along with computer-aided detection (CAD). Synthesized 2D images are generated from the tomosynthesis. FINDINGS: BREAST COMPOSITION: There are scattered areas of fibroglandular density. BILATERAL BREASTS: No significant masses, suspicious calcifications or other abnormalities are seen in either breast. MM/MM tomosynthesis screening BI IMPRESSION: BILATERAL BREASTS: Negative, no mammographic evidence of malignancy. Normal interval follow-up is recommended in 12 months. ASSESSMENT: BI-RADS: Category 1: Negative RECOMMENDATION: Routine annual mammography screening. FOLLOW-UP: 1 year F/U This examination should not preclude the clinical evaluation of a suspicious palpable abnormality. This patient's information was entered into a reminder system with a target due date for their next mammogram. Electronically signed by: Shanda Rai MD 05/22/2025 07:55 PM [facility]
--- OUTSIDE RECORDS SUMMARY | 2025-05-22 15:21 | XMS_ITS | Clinical Summary ---
Author Organization [employer] Address [address] [facility] 7t [place] [address] Care Team Providers Care Larriman Name Role Phone Unavailable Primary Care Provider [...] Description 03/15/2025 10:30 AM EDT Office Visit [facility] ADULT DENTAL [address] [place] [address] Paris Shah, DDS Tooth sensitivity to cold (Primary Dx); Localized gingival recession from Last 3 Months Immunizations Immunization Administration [...] Dental Oral Exam 02/06/2025 08/08/2024 COVID-19 Vaccine ( season) 2025 06/26/2022, 09/26/2021, 01/15/2021, Additional history [...] Tooth sensitivity to cold Localized gingival recession INTRAORAL - COMPLETE SERIES OF RADIOGRAPHIC IMAGES Routine 08/08/2024 2:00 PM EST Encounter for dental examination Dental plaque Fractured dental spiritism with loss of material COMPREHENSIVE ORAL EVALUATION - NEW OR ESTABLISHED PATIENT Routine 08/08/2024 2:00 PM EST Encounter for dental examination Dental plaque Fractured dental spiritism with loss of material from Last 3 Months or Most Recently Relevant to Health Maintenance Insurance [facility] MEDICARE REPLACEMENT [facility]AL - [facility]
--- OUTSIDE RECORDS SUMMARY | 2025-05-22 15:21 | XMS_ITS | Encounter Summary ---
Author Organization [employer] Address [address] [facility] [address]t [place] [address] Care Team Providers Care Spiral Machine Operator Name Role Phone Unavailable Primary Care Provider Unavailabl e Reason for Visit * Reason Onset Date Comments Appointment 05/03/2024 Encounter Details Date Type Department Care Team (Late st Contact Info) Description 05/03/2024 Telephone [facility] ADULT DENTAL [address] [place] [address] GlennyCaitlin martin [address] [place] [address] Appointment Social History Tobacco Use Types Packs/Day [...]
--- OUTSIDE RECORDS SUMMARY | 2025-05-22 15:21 | XMS_ITS | Encounter Summary ---
Author Organization [employer] Address [address] [facility] 7t [place] [address] Care Team Providers Care Cutlet Maker Pork Name Role Phone Unavailable Primary Care Provider Unavailabl e Encounter Details Date Type Department Care Team (Late st Contact Info) Description 05/03/2024 Telephone [facility] ADULT DENTAL [address] [place] [address] Margarita Farnsworth DMD Social History Tobacco Use [...]
--- OUTSIDE RECORDS SUMMARY | 2025-05-22 15:21 | XMS_ITS | Clinical Summary ---
Author Organization [facility] Address [address] [place] [id number] Care Team Providers Care Merchandise Processor Name Role Phone La Mason MD Primary Care Provider [phone] Allergies No known active allergies Medications lisinopril [...] age to complete this topic Insurance Medicaid [place] Care Teams Merchandise Processor Relationship Specialty Start Date End Date La Mason MD [address] [place], [place] PCP - General 07/08/20
== END 2025-05-22 11:35 | disposition home or self-care (01) ==
LOC: HO.MAMMO 11:34
PROVIDERS: PCP Internal Medicine; Visit Provider Internal Medicine
DX: Z12.31 Encounter for screening mammogram for malignant neoplasm of breast (principal)
CPT/HCPCS: 77063; 77067

== ENCOUNTER 2025-06-16 09:25 | Emergency (ER) | payer OTHER, SELFPAY ==
[2025-06-16 09:32] VITALS: BP 201/101; PULSE 80; RESP 18; TEMP 36.6; O2SAT 97; BMI 26.4
--- NOTE | 2025-06-16 09:43 | ED_ITS ---
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 Patient states that that over the last day she has had a worsening rash to her left arm and shoulder. Patient states that the rash davis. Patient states she has never been vaccinated for shingles. Patient denies any other complaints at this time. Related Data Previous Rx's ?Medication ?Instructions ?Recorded amlodipine 5 mg tablet 5 mg PO DAILY 90 days #90 ta bs 07/31/24 fluocinolone acetonide oil 0.01 % 5 drp otic (ears) BI D 7 days #20 mL 09/12/24 ear drops (DermOtic Oil) guaifenesin 600 mg tablet, 600 mg PO BID 5 days #10 ta bs 09/12/24 extended release 12 hr (Mucinex) lisinopril 30 mg tablet 30 mg PO DAILY 90 days #90 t abs 03/06/25 valacyclovir 1 gram tablet 1,000 mg PO TID 7 days #21 tabs 06/16/25 Allergies Allergy/AdvReac Type Severity Reaction Status Date / Time No Known Allergies Allergy Verified 06/16/25 09:35 Review of Systems 2 Constitutional: Constitutional: Reports as per HPI Eyes: Eyes: Reports as per HPI ENT: Reports as per HPI Cardiovascular: Cardiovascular: Reports as per HPI Respiratory: Respiratory: Reports as per HPI Gastrointestinal: Gastrointestinal: Reports as per HPI Genitourinary: Genitourinary: Reports as per HPI Musculoskeletal: Musculoskeletal: Reports as per HPI Integumentary/Breasts: Skin/Breast: Reports as per HPI Neurologic: Reports as per HPI Psychiatric: Psychiatric: Reports as per HPI Endocrine: Endocrine: Reports as per HPI Hematologic/Lymphatic: Hematologic/Lymphatic: Reports as per HPI Allergic/Immunologic: Allergic/Immunologic: Reports as per HPI [facility] Past Medical History Attestation statement: The following information was validated with the patient. Source: old records reviewed and nursing notes reviewed Medical History Latent tuberculosis Lung nodule Ankle fracture, right Dyslipidemia Right ankle swelling Essential hypertension Surgical History H/O colonoscopy History of tubal ligation Family History Family History Father Prostate cancer Diabetes Mother No problems noted. Paternal Grandmother Vaginal cancer Paternal Aunt Cervical cancer Son In good health Sister In good health Sister In good health Daughter In good health Daughter In good health Social History Social History Housing: House Alcohol intake: never Patient Tobacco Use Status: Never used Tobacco e-Cigarette/Vaping Use: Never Used Second Hand Smoke Exposure: No Advance Directives: No Advance Directives Information Provided: Yes Do you have a plan to hurt others: No Plan service: No Current occupational status: unemployed Cognitive needs: No Hearing needs: No Vision needs: Yes Physical Exam ED Vital Signs: Vital Signs - 24 hr 06/16/25 09:32 06/16/25 09:50 Temperature 97.9 F 97.9 F Pulse Rate 80 80 Respiratory Rate 18 18 Blood Pressure 201/101 H 201/101 H Pulse Oximetry 97 97 Oxygen Delivery Method Room Air Room Air BMI result Body Mass Index 26.4 Const General: cooperative, no acute distress, alert and awake Nutritional Appearance: well nourished Orientation/consciousness: patient oriented x3 [facility] Head: Yes normal to inspection and Yes atraumatic Ears: hearing grossly normal bilaterally and external ears normal General nose exam: Normal external nose present, no nasal discharge noted and no epistaxis Face and sinus: Yes normal facial exam, No abrasion and No laceration Mouth: Normal oral and palatal mucosa present, no drooling and no muffled voice Eyes General: appearance normal, both eyes and all related structures Periorbital: periorbital findings normal Eyelids: Yes eyelids normal Conjunctivae: conjunctivae normal Pupils: Equal, round and reactive pupils present EOM: EOMs intact bilaterally Neck Neck: Yes normal visual inspection and Yes full ROM Resp Effort & Inspection: normal respiratory effort and able to speak in complete sentences Neuro General: patient oriented x3, moves all extremities and CN's II-XI intact bilaterally Cranial nerves: Yes Equal, round and reactive pupils present Cognition (Neuro): normal cognition Extrem Other: General: Yes full ROM and Yes capillary refill normal Psych Appearance: grossly normal Mental Status: mental status grossly normal Affect: normal affect Attitude: cooperative Thought process: Normal thought process present Thought content: Normal thought content present Insight: Good insight present (Psych) Medical Decision Making Medical Decision Making MDM Narrative: Patient is a 74 year old female with a history of HTN presenting to the emergency department today with a rash and pain to her left arm and shoulder. Patient's physical exam was as noted in the physical exam portion of this note and consistent with shingles. I explained my physical exam findings to the patient. I answered all questions asked by the patient. I stressed the importance of the patient taking her medication as directed (either prescribed or as the over the counter packaging recommends). I stressed the importance of the patient following up with her primary care provider. I stressed the importance of the patient returning to the emergency department immediately if her symptoms were to worsen or if she were to develop any dizziness, shortness of breath, difficulty breathing, chest pain, blurry vision, loss of vision, nausea, vomiting, abdominal pain, fever, chills, back pain, or any other complaints. Patient verbalized agreement and understanding with this treatment plan and discharge. Differential Diagnosis Differential Diagnoses: The differential diagnosis associated with the presentation includes Shingles Rash Admission/Observation Consideration of admission/observation: Escalation of care including admission/observation considered Patient would have been admitted to the hospital had her clinical presentation warranted hospital admission. Prescription Management I considered prescription management with: Antiviral (patient prescribed antiviral for shingles) Discharge Plan Discharge Clinical Impression: Shingles Qualifiers: Herpes zoster complications: without complications Qualified Code(s): B02.9 - Zoster without complications Patient Disposition: Home, Self-Care Instructions: Shingles (ED) Additional Instructions: Your examination is consistent with shingles. Do NOT let anyone touch the lesions as this can spread. Jarquin examen es compatible con herpes z?ster. NO permita que nadie toque las lesiones, ya que esto puede propagar la infecci?n. IF you are prescribed home medications and/or you are taking over the counter medications at home - it is very important you continue to do so as prescribed / directed unless told otherwise. SI le recetan medicamentos y/o est? tomando medicamentos de venta chaitanya, es muy importante que contin?e haci?ndolo seg?n lo recetado/indicado a menos que le indiquen lo contrario. Follow up with your primary care provider. Return to the emergency department immediately if your symptoms worsen or if you develop any dizziness, shortness of breath, difficulty breathing, chest pain, blurry vision, loss of vision, nausea, vomiting, abdominal pain, fever, chills, back pain, or any other complaints. Lelia?seguimiento?con jarquin m?dico de atenci?n primaria. Acuda inmediatamente al servicio de urgencias si mirella s?ntomas empeoran o si presenta falta de aliento, dificultad para respirar, dolor tor?cico, mareos, aturdimiento, dolor de espalda, dolor abdominal, fiebre, escalofr?os o cualquier otro s?ntoma. Please see the information below about our Patient Portal. If you are not yet enrolled in the [facility] Patient Portal, you will receive an enrollment email invitation following your visit to any [facility] care setting. You may also self-enroll in the Patient Portal by visiting our website: [email or web address] The following information is required to access the Patient Portal: - Your [facility] Medical Record Number - Your personal home email address (must match what is in your electronic medical record, Registration staff can assist with this) - Name - Date of Capabilities of the Patient Portal: - Message some providers - View upcoming appointments - Access your health summary, medical history, and visit history - View current conditions and allergies - View procedure and lab results - View your medications, including guidelines, side effects, and precautions - Complete pre-appointment questionnaires requested by your provider - Ready summary reports of your office visits and procedures To access the Patient Portal Mobile Iker, follow these directions: - Search WayConnected in the Iker Store or KonnectAgain Store - Download the Iker - Search for [facility] - Enter your login/password Portal del paciente Si usted no esta inscrito en el portal de pacientes de [facility] y [facility], recibira cristopher invitacion de inscripcion despues de jarquin visita al [facility] o al [facility] via correo electronico. Tambien puede inscribirse voluntariamente en el portal de pacientes visitando nuestra pagina web: [email or web address] La siguiente informacion sera requerida para acceder al portal: - Jarquin sharee de historia medica de [facility] - Jarquin direccion de correo electronico personal - Nombre - Fecha de nacimiento Capacidades: Las siguientes capacidades estan disponibles en el portal de pacientes: - Enviar mensajes a algunos doctores - Verificar proximas citas - Acceso a jarquin historial de marino, registro medico e historial de visitas - Lorri las condiciones actuales y alergias lorri procedimientos y resultados del laboratorio - Lorri mirella medicamentos, incluyendo las pautas - Efectos secundarios y precauciones - Completar o llenar formularios / cuestionarios de - Citas solicitadas por jarquin doctor - Leer los resumenes de reportes medicos de mirella visitas y procedimientos Myke acceder a la aplicacion movil: - Busque WayConnected en la Iker Store o KonnectAgain Store - Descargue la aplicacion - [facility] - Ingrese jarquin nombre de usuario / Contrasena Prescriptions: New valacyclovir 1 gram tablet 1,000 mg PO TID 7 Days Qty: 21 0RF No Action amlodipine 5 mg tablet 5 mg PO DAILY 90 Days Qty: 90 1RF lisinopril 30 mg tablet 30 mg PO DAILY 90 Days Qty: 90 1RF guaifenesin [Mucinex] 600 mg tablet extended release 12hr 600 mg PO BID 5 Days Qty: 10 0RF fluocinolone acetonide oil [DermOtic Oil] 0.01 % drops 5 drp otic (ears) BID 7 Days Qty: 20 0RF Referrals: La Mason MD [Primary Care Provider, Internal Medicine] Interventions: ED Discharge Assessment Last Done: 06/16/25 09:50 Discharge Date/Time: 06/16/25 09:51 Print Language: Sami
--- OUTSIDE RECORDS SUMMARY | 2025-06-16 09:45 | XMS_ITS | Clinical Summary ---
Author Organization [facility] Address [address] [place] [id number] Care Team Providers Care Csr Retail Name Role Phone La Mason MD Primary Care Provider [phone] Allergies No known active allergies Medications lisinopril [...] age to complete this topic [place] Care Teams Csr Retail Relationship Specialty Start Date End Date La Mason MD [address] [place], [place] PCP - General 07/08/20
--- OUTSIDE RECORDS SUMMARY | 2025-06-16 09:45 | XMS_ITS | Clinical Summary ---
Author Organization [employer] Address [address] [facility] [address]t [place] [address] Care Team Providers Care Finish Mill Operator Name Role Phone Unavailable Primary Care [...] Date Renal mass 07/18/2021 Essential hypertension 07/18/2021 Immunizations Immunization Administration Dates Next Due Pfizer [...] for dental examination Dental plaque Fractured dental judaism with loss of material COMPREHENSIVE ORAL EVALUATION - NEW OR ESTABLISHED PATIENT Routine 08/08/2024 2:00 PM EST Encounter for dental examination Dental plaque Fractured dental judaism with loss of material from Last 3 Months or Most Recently Relevant to Health Maintenance Insurance [facility] MEDICARE REPLACEMENT DENTAL - [facility]
--- OUTSIDE RECORDS SUMMARY | 2025-06-16 09:45 | XMS_ITS | Encounter Summary ---
Author Organization [employer] Address [address] [facility] [address] [place] [address] Care Team Providers Care Hydraulic Modeling Engineer Name Role Phone Unavailable Primary Care Provider Unavailabl e Encounter Details Date Type Department Care Team (Late st Contact Info) Description 05/03/2024 Telephone [facility] ADULT DENT[facility] [address] [place] [address] Margarita Farnsworth DMD Social History Tobacco Use [...]
--- OUTSIDE RECORDS SUMMARY | 2025-06-16 09:45 | XMS_ITS | Encounter Summary ---
Author Organization [employer] Address [address] [facility] [address] [place] [address] Care Team Providers Care Oxygraph Operator Name Role Phone Unavailable Primary Care Provider Unavailabl e Reason for Visit * Reason Onset Date Comments Appointment 05/03/2024 Encounter Details Date Type Department Care Team (Late st Contact Info) Description 05/03/2024 Telephone [facility] ADULT DENTAL [address] [place] [address] GlennyCaitlin martin [address] [place] [address] Appointment Social History Tobacco Use Types Packs/Day [...]
[2025-06-16 09:50] VITALS: BP 201/101; PULSE 80; RESP 18; TEMP 36.6; O2SAT 97
== END 2025-06-16 09:51 | disposition home or self-care (01) ==
PROVIDERS: Emergency Provider Emergency Medicine; PCP Internal Medicine
DX: B02.9 Zoster without complications (principal); M79.602 Pain in left arm; R21 Rash and other nonspecific skin eruption; I10 Essential (primary) hypertension; E78.5 Hyperlipidemia, unspecified
CPT/HCPCS: 99282; 99283